=== PATIENT | male | born 1940 | race Caucasian/White ===

== ENCOUNTER 2016-11-09 11:38 | Emergency (ER) | payer MEDICARE, OTHER ==
[~2016-11-09 11:38] MED LIST: ASPI81TA40 PO; LOVA40TA PO
--- NOTE | 2016-11-09 11:45 | ED.REPORT ---
HPI-Trauma Minor / Fall Date of Service Nov 09, 2016 ED Provider: Dr. Ankush Paulson MD A 76 year old male with history of diabetes mellitus and Parkinson's disease presents to the ED via EMS after a GLF that occurred just prior to arrival. Associated symptoms include mild lower abdominal pain and a recent cough with nasal congestion. Patient denies head injury or any current pain. He denies fever, chills, dysuria or numbness/tingling. Nursing Notes Stated Complaint: FELL DOWN Nursing Notes Reviewed: Yes Allergies: Coded Allergies: No Known Allergies (Verified Allergy, Mild, 03/25/16) Scheduled Aspirin-Expunged Drug, Do Not Renew! (Aspirin-Expunged Drug, Do Not Renew!) 81 Mg Tab.chew 81 MG PO DAILY Cephalexin (Keflex) 500 Mg Capsule 500 MG PO QID Lovastatin-Expunged Drug, Do Not Renew! (Lovastatin-Expunged Drug, Do Not Renew! ) 40 Mg Tablet 40 MG PO DAILY General Time Seen by MD: 12:00 Chief Complaint Fall Hx Obtained From: Patient Arrived By: Ambulance Onset Occurred: Just prior to arrival Symptom Duration: Since onset Associated with: Reports: Abdominal pain (mild ), Denies: Fever Additional Notes: Cough Nasal congestion Pertinent Negative: Pt denies other symptoms Recent Healthcare: No recent doctor visit, No recent hospitalization Past Medical History Past Medical History Notes: PCP: Dr. Medrano Past Medical History Diabetes mellitus Urinary retention; bliss catheter Parkinson's Disease Past Surgical History Reports: Tonsillectomy Smoking History Never Smoker Social History Other Social History: Good social support, Local resident Ambulatory Status Cane Review of Systems Constitutional: Denies: Chills, Fever Ears / Nose / Throat: Reports: Nasal congestion Respiratory: Reports: Non-productive cough, Denies: Shortness of breath Musculoskeletal: Denies: Back pain, Extremity pain, Joint pain, Neck pain Neurologic: Denies: Change LOC, Headache Complete sys rev & neg: except as marked. GI: Reports: Abdominal pain (mild abdominal discomfort), Denies: Nausea, Vomiting Female: Denies: Dysuria Physical Exam Initial Vital Signs Vital Signs (First) Date Time Temp Pulse Resp B/P Pulse Ox O2 Delivery O2 Flow Rate FiO2 11/09/16 11:53 37.1 61 16 150/65 96 Room Air Initial VS: Reviewed Extremities: Vascular intact, Neuro intact, No swelling, No tenderness Skin: Warm, Dry, No cyanosis Psychiatric: Mood/affect normal, Behavior normal, Normal thought content General/Constitutional: Awake, Alert GENERAL: Patient smells of urine Neck: Atraumatic, Supple, Full range of motion Head / Eyes: Atraumatic, Normocephalic, PERRL, EOMI ENT: Atraumatic, Airway patent, Mucous membranes moist, Pharynx NL Respiratory / Chest: Atraumatic, Breath sounds NL, Breath sounds = bilat, No respiratory distress Cardiovascular: Heart rate NL, Regular rhythm, Heart sounds NL Abdomen: Atraumatic, Soft Tenderness/Guarding/Rebound: Positive: Tender suprapubic (Mild) Neurologic: Oriented X3, Speech NL, No motor deficits, No sensory deficits, CN II - XII intact NEURO: Left eyelid ptosis Interpretation & Diagnostics Lab Results Interpretation Result Diagram: 11/09/16 1214 11/09/16 1214 Test 11/09/16 12:06 11/09/16 12:14 11/09/16 13:32 Hold Chase Top Tube Received (Received) White Blood Count 8.4th/mm3 (3.8-10.1) Red Blood Count 5.06mil/mm3 (4.40-5.80) Hemoglobin 14.6g/dL (13.8-17.2) Hematocrit 44.2% (41.0-50.0) Mean Corpuscular Volume 87.4fL (81-100) Mean Corpuscular Hemoglobin 28.9pg (27.0-35.0) Mean Corpuscular Hemoglobin Concent 33.0% (32.0-37.0) Red Cell Distribution Width 13.9% (12.3-15.4) Platelet Count 273bil/L (150-400) Neutrophils (%) (Auto) 71.0% (40-74) Lymphocytes (%) (Auto) 15.4% (14-46) Monocytes (%) (Auto) 12.4% (4-12) Eosinophils (%) (Auto) 0.6% (0-5) Basophils (%) (Auto) 0.5% (0-3) Sodium Level 140mEq/L (134-144) Potassium Level 4.3mEq/L (3.5-5.2) Chloride Level 99mEq/L (97-108) Carbon Dioxide Level 26mmol/L (18-29) Blood Urea Nitrogen 23mg/dL (8-27) Creatinine 1.08mg/dL (0.76-1.27) Estimat Glomerular Filtration Rate 71mL/min (>59) Glucose Level 133mg/dL (60-99) Calcium Level 9.5mg/dL (8.5-10.1) Total Bilirubin 0.8mg/dL (0.0-1.2) Aspartate Amino Transf (AST/SGOT) 13U/L (0-50) Alanine Aminotransferase (ALT/SGPT) 5U/L (0-44) Alkaline Phosphatase 105U/L (25-160) Total Protein 7.3g/dL (6.4-8.4) Albumin 4.0g/dL (3.4-5.0) Urine Color Yellow (YELLOW) Urine Appearance Cloudy (CLEAR,HAZY) Urine pH 8.0 (5.0-8.0) Urine Specific [place] 1.010 (1.003-1.035) Urine Protein Negativemg/dL (NEG,TRACE) Urine Glucose (UA) Negativemg/dL (NEGATIVE) Urine Ketones Negativemg/dL (NEGATIVE) Urine Occult Blood Trace (NEGATIVE) Urine Nitrite Positive (NEGATIVE) Urine Bilirubin Negative (NEGATIVE) Urine Urobilinogen Normalmg/dL (NORMAL) Urine Leukocyte Esterase Moderate (NEGATIVE) Urine RBC 3-10/hpf (0-2) Urine WBC >50/hpf (0-5) Urine Epithelial Cells Few/hpf (NONE-MOD) Urine Crystals None seen (NONE SEEN) Urine Bacteria Many/hpf (NONE-FEW) Urine Hyaline Casts None/lpf (NONE) Urine Granular Casts None seen (NONE SEEN) Urine Waxy Casts None seen (NONE SEEN) Urine Red Blood Cell Casts None seen (NONE SEEN) Urine White Blood Cell Casts None seen (NONE SEEN) Urine Mucus None seen (None Seen) Urine Trichomonas None seen (NONE SEEN) Urine Yeast None (NONE SEEN) Urinalysis Comment None Urine Culture Reflexed Indicated X-Ray Chest Interpretation Chest Xray Interpretation: IMPRESSION: 1. No acute cardiopulmonary disease process. 2. Focal opacity left lung apex compatible with superimposition of shadows versus lung nodule. Recommend standard 2 view of the chest when clinically feasible. Dictated by: Imelda Seo MD, PhD on 11/09/2016 at 12:26 Interpretation / Wet Read by: Interpret - Radiologist Re-Eval/Medical Decision Med Decision/Clinical Course Mechanical fall out of bed this morning in a Parkinson's patient, he smells obviously of urine, there may be a component of mild weakness in the setting of a urinary tract infection. Patient is started on Keflex for this reason. He is ambulatory independently while in the ER and deemed safe to be discharged home. Home health referrals are made with the help of social work. Return and follow-up precautions are given. Re-Evaluation/Progress #1: Time of Eval: 13:21 Patient Status: Condition improved Re-Evaluation/Progress Note: Patient is rechecked. He is informed of his results and agrees to meet with the ASSISTANT PROFESSOR OF ECONOMICS. Re-Evaluation/Progress #2: Time of Eval: 13:55 Patient Status: Condition improved Re-Evaluation/Progress Note: Patient is rechecked. All of the patient's questions are adressed. He understands and agrees with the treatment plan to discharge. Counseled Regarding: Diagnosis, Lab results, Need for follow-up, When/why to return to ED Discharge & Departure Impression: Primary Impression: Urinary tract infection Urinary tract infection type: site unspecified Hematuria presence: without hematuria Qualified Code: N39.0 - Urinary tract infection, site not specified Additional Impression: Lung nodule Disposition: Home Discharge Condition All VS Reviewed: Yes Condition: Stable Patient Instructions: Urinary Tract Infection in Men (ED) Additional Instructions: Thank you for trusting us with your care this morning. Your emergency department evaluation results including lab results and chest X- ray are reassuring. Your chest X-ray did reveal a possible lung nodule and your lab work revealed a urinary tract infection. Please take Keflex as directed and see the referral for home health given by the web content & social media manager. Schedule a follow up with your primary care physician in the next 2-3 days for a recheck. Please return to the emergency department for any new or worsening conditions including any difficulty breathing, numbness/tingling, fevers, or chest pain. Referrals: Luis Medrano MD (PCP) Scribe Attestation Portions of this note were transcribed by Ghada Rasihd. I, Dr. Robbi Fonseca personally performed the history, physical exam and medical decision-making; I reviewed and confirmed the accuracy of the information in the transcribed note. Signed by: Tera Pinedo, 11/09/16 1430. copies to: Luis Medrano MD, Timothy S DO Nov 09, 2016 11:45 GHADA RASHID Nov 09, 2016 12:07
[2016-11-09 11:53] VITALS: BP 150/65; PULSE 61; RESP 16; O2SAT 96
[2016-11-09] MEDS ORDERED: 0.9% Sodium Chloride 500 ML IV ONE (12:10)
[2016-11-09 12:24] LABS: BASOPHILS % (AUTO) 0.5 % (0-3); EOSINOPHILS % (AUTO) 0.6 % (0-5); MONOCYTES % (AUTO) 12.4 % (4-12); Mean Corpuscular Hemoglobin 28.9 pg (27.0-35.0); Mean Corpuscular Volume 87.4 fL (81-100); Platelet Count 273 bil/L (150-400)
--- NOTE | 2016-11-09 12:28 | DRSVH ---
PROCEDURE: X-RAY CHEST ONE VIEW, PORTABLE ([id number]) INDICATIONS: weakness, congestion TECHNIQUE: One view of the chest was acquired. COMPARISON: None. FINDINGS: Surgical changes and devices: None. Lungs and pleura: No pleural effusions or pneumothorax. Focal masslike opacity noted in the apex of the left lung which could represent superimposition of skeletal shadows versus a parenchymal mass. Mediastinum: Mediastinal contours appear normal. Heart size is normal. Bones and chest wall: No suspicious bony lesions. Overlying soft tissues appear unremarkable. IMPRESSION: 1. No acute cardiopulmonary disease process. 2. Focal opacity left lung apex compatible with superimposition of shadows versus lung nodule. Adam mmend standard 2 view of the chest when clinically feasible. Dictated by: Imelda Seo MD, PhD on 11/09/2016 at 12:26 Approved by: Imelda Seo MD, PhD on 11/09/2016 at 12:27
[2016-11-09 14:01] LABS: APPEARANCE,URINE CLOUDY (CLEAR,HAZY); COLOR,URINE YELLOW (YELLOW); OCCULT BLOOD,URINE TRACE (NEGATIVE); UROBILINOGEN,URINE NORMAL (NORMAL)
[2016-11-09] MEDS ORDERED: CEPH-512 PO (14:07)
[2016-11-09 14:42] VITALS: BP 145/65; PULSE 64; RESP 16; O2SAT 97
== END 2016-11-09 14:43 | disposition home or self-care (01) ==
LOC: SED 11:38 → EDBD 11:38 → SED 14:43
DX: N39.0 Urinary tract infection, site not specified (principal); R91.1 Solitary pulmonary nodule; W06.XXXA Fall from bed, initial encounter; Y92.013 Bedroom of single-family (private) house as the place of occurrence of the external cause; Y93.89 Activity, other specified; Y99.8 Other external cause status; B96.1 Klebsiella pneumoniae [K. pneumoniae] as the cause of diseases classified elsewhere; R09.81 Nasal congestion; E11.9 Type 2 diabetes mellitus without complications; G20 Parkinson's disease; Z87.891 Personal history of nicotine dependence; Z91.81 History of falling; Z79.82 Long term (current) use of aspirin
CPT/HCPCS: 36415; 71010; 80053; 81000; 85025; 87077; 87086; 87088; 87186; 96360; 99285; J7040

== ENCOUNTER 2016-12-02 00:54 | Inpatient (IN) | payer MEDICARE, OTHER ==
[2016-12-02] VITALS (9 sets, daily range): BP systolic 98–143; BP diastolic 46–67; PULSE 68–121; RESP 18–28; O2SAT 91–96
[~2016-12-02] VITALS: Ht 185.4 cm; Wt 116.3 kg
[~2016-12-02 00:54] MED LIST changes: +CEPH-512 PO
--- NOTE | 2016-12-02 01:15 | ED.REPORT ---
HPI-Dyspnea / Wheezing Date of Service Dec 02, 2016 ED Provider: Noa Jorgensen MD This is a 76 year old male with a history of DM and Parkinson's Disease presenting to the emergency department via EMS due to chills that began 16 hours ago. Family member states pt also had an episode of dyspnea just prior to arrival. Denies chest pain, nausea, vomiting, fever, or abdominal pain. Patient was normal yesterday. En route, blood pressure 162/75, HR 100. Nursing Notes Stated Complaint: FEVER Chief Complaint: Respiratory Complaints Nursing Notes Reviewed: Yes Allergies: Coded Allergies: No Known Allergies (Verified Allergy, Mild, 03/25/16) Scheduled Aspirin-Expunged Drug, Do Not Renew! (Aspirin-Expunged Drug, Do Not Renew!) 81 Mg Tab.chew 81 MG PO DAILY Cephalexin (Keflex) 500 Mg Capsule 500 MG PO QID Lovastatin-Expunged Drug, Do Not Renew! (Lovastatin-Expunged Drug, Do Not Renew! ) 40 Mg Tablet 40 MG PO DAILY General Time Seen by MD: 01:04 Chief Complaint Shortness of breath Hx Obtained From: Patient Arrived By: Walk-in Sudden in Onset?: Yes Onset Occurred: 9 - 12 hours ago Symptom Duration: Since onset Severity: Current: No pain currently Pertinent Negative: Pt denies other symptoms Recent Healthcare: No recent doctor visit, No recent hospitalization Similar Sx Previous: No Past Medical History Past Medical History Notes: PCP: Dr. Medrano Past Medical History Diabetes mellitus Urinary retention; bliss catheter Parkinson's Disease Past Surgical History Reports: Tonsillectomy Smoking History Never Smoker Social History Other Social History: Good social support, Local resident Ambulatory Status Cane Review of Systems Constitutional: Reports: Chills, Fever Respiratory: Denies: Non-productive cough, Shortness of breath Musculoskeletal: Denies: Back pain Complete sys rev & neg: except as marked. Physical Exam Initial Vital Signs Vital Signs (First) Date Time Temp Pulse Resp B/P Pulse Ox O2 Delivery O2 Flow Rate FiO2 12/02/16 01:03 37.9 121 28 143/51 91 Room Air Initial VS: Reviewed Head / Eyes: Atraumatic, Normocephalic, PERRL ENT: Mucous membranes moist, Conjunctiva normal, No scleral icterus Abdomen / GI: Soft, Non-tender, No guarding, No rebound, No distention Extremities: Vascular intact, Neuro intact, No swelling, No tenderness Skin: Warm, Dry, No cyanosis Neurologic: Alert, Oriented, Nonfocal Psychiatric: Mood/affect normal, Behavior normal, Normal thought content General/Constitutional: Awake, Alert Slow to respond, requires re-direction Neck: Atraumatic, Supple, No meningismus, Full range of motion, No swelling, Non-tender, No masses Respiratory / Chest: No respiratory distress, No wheezing Diffuse rhonchi Cardiovascular: Regular rhythm, Heart sounds NL, Peripheral circulation NL Heart Rate / Rhythm: Positive: Tachycardia Interpretation & Diagnostics Lab Results Interpretation Result Diagram: 12/02/169912/02/1699 Test 12/02/16 01:00 12/02/16 01:20 12/02/16 01:45 White Blood Count 4.2th/mm3 (3.8-10.1) Red Blood Count 5.20mil/mm3 (4.40-5.80) Hemoglobin 15.0g/dL (13.8-17.2) Hematocrit 46.2% (41.0-50.0) Mean Corpuscular Volume 88.8fL (81-100) Mean Corpuscular Hemoglobin 28.8pg (27.0-35.0) Mean Corpuscular Hemoglobin Concent 32.5% (32.0-37.0) Red Cell Distribution Width 13.9% (12.3-15.4) Platelet Count 151bil/L (150-400) Neutrophils (%) (Auto) 78.0% (40-74) Lymphocytes (%) (Auto) 17.8% (14-46) Monocytes (%) (Auto) 2.1% (4-12) Eosinophils (%) (Auto) 1.7% (0-5) Basophils (%) (Auto) 0.2% (0-3) Prothrombin Time 11.6sec (8.1-12.5) Prothromb Time International Ratio 1.08ratio Activated Partial Thromboplast Time 22.2sec (22.8-33.0) Sodium Level 144mEq/L (134-144) Potassium Level 4.3mEq/L (3.5-5.2) Chloride Level 101mEq/L (97-108) Carbon Dioxide Level 22mmol/L (18-29) Blood Urea Nitrogen 30mg/dL (8-27) Creatinine 1.20mg/dL (0.76-1.27) Estimat Glomerular Filtration Rate 63mL/min (>59) Glucose Level 123mg/dL (60-99) Calcium Level 9.6mg/dL (8.5-10.1) Magnesium Level 1.4mg/dL (1.6-2.6) Total Bilirubin 0.5mg/dL (0.0-1.2) Aspartate Amino Transf (AST/SGOT) 14U/L (0-50) Alanine Aminotransferase (ALT/SGPT) < 5U/L (0-44) Alkaline Phosphatase 134U/L (25-160) Troponin T < 0.010ug/L (0.0-0.011) Pro-B-Type Natriuretic Peptide 195.9pg/mL (0-486) Total Protein 7.2g/dL (6.4-8.4) Albumin 4.1g/dL (3.4-5.0) Procalcitonin 0.05ng/mL (0.00-0.08) Lactic Acid Level 3.4mmol/L (0.4-2.0) Urine Color Straw (YELLOW) Urine Appearance Slightly cloudy Urine pH 5.0 (5.0-8.0) Urine Specific [place] 1.020 (1.003-1.035) Urine Protein Tracemg/dL (NEG,TRACE) Urine Glucose (UA) Negativemg/dL (NEGATIVE) Urine Ketones Negativemg/dL (NEGATIVE) Urine Occult Blood Moderate (NEGATIVE) Urine Nitrite Negative (NEGATIVE) Urine Bilirubin Negative (NEGATIVE) Urine Urobilinogen Normalmg/dL (NORMAL) Urine Leukocyte Esterase Moderate (NEGATIVE) Urine RBC 3-10/hpf (0-2) Urine WBC Packed/hpf (0-5) Urine Epithelial Cells Occasional/hpf (NONE-MOD) Urine Crystals None seen (NONE SEEN) Urine Bacteria Many/hpf (NONE-FEW) Urine Hyaline Casts None/lpf (NONE) Urine Granular Casts None seen (NONE SEEN) Urine Waxy Casts None seen (NONE SEEN) Urine Red Blood Cell Casts None seen (NONE SEEN) Urine White Blood Cell Casts None seen (NONE SEEN) Urine Mucus None seen (None Seen) Urine Trichomonas None seen (NONE SEEN) Urine Yeast None (NONE SEEN) Urine Culture Reflexed Indicated ECG Interpretation ECG Interpretation: Junctional tachycardia at a rate of [address] elevation T-wave inversion in AVR, AVL, V1 Time: 01:21 Interpreted by: ED physician X-Ray Chest Interpretation Chest Xray Interpretation: Cardiomegaly Slightly widened mediastinum that is unchanged from prior Increased patchy infiltrates diffusely, when compared to prior Interpretation / Wet Read by: Wet read ED physician CT Chest Interpretation Impression: Suboptimal study for distal lobar, segmental and subsegmental PE due to motion artifact. No pulmonary emboli in the main and proximal lobar pulmonary arteries. Radiologist: Jam Valdez MD Re-Eval/Medical Decision Med Decision/Clinical Course 76-year-old male with past medical history of Parkinson's, hypertension, BPH requiring self-catheterization brought in by EMS for shortness of breath and altered mental status. Differential diagnosis includes but is not limited to pneumonia versus PE versus ACS versus urinary tract infection. Patient is tachycardic with junctional rhythm on EKG. There is no ST elevation. His PE study was suboptimal, but does not show any large PE. He was given fluids. His lactic acid was elevated. He has no leukocytosis or left shift. However, he does have a urinary tract infection, and I see small infiltrates on his chest x-ray. He was given Rocephin and a Zithromax, along with fluid resuscitation in the emergency department. He was admitted by the hospitalist for altered mental status which was improving and urinary tract infection Re-Evaluation/Progress : Time of Eval: 03:03 Re-Evaluation/Progress Note: Discussed lab and imaging results and need for admission, all questions addressed. Consultation : Referral / Consult Name: Britney Madden DO Consulted With: Hospitalist Call Returned at: 03:22 Supervisor Ticket Sales: Accepts admit Counseled Regarding: Diagnosis, Lab results, Need for follow-up, Need for admission Discharge & Departure Impression: Primary Impression: Pneumonia Pneumonia type: due to unspecified organism Laterality: unspecified laterality Lung location: unspecified part of lung Qualified Code: J18.9 - Pneumonia, unspecified organism Additional Impression: UTI (urinary tract infection) Urinary tract infection type: site unspecified Hematuria presence: without hematuria Qualified Code: N39.0 - Urinary tract infection, site not specified Disposition: ADMITTED TO HOSPITAL Discharge Condition All VS Reviewed: Yes Condition: Stable Referrals: Luis Medrano MD (PCP) Scribe Attestation Portions of this note were transcribed by Emily Pink. I, Dr. Jorgensen personally performed the history, physical exam and medical decision-making; I reviewed and confirmed the accuracy of the information in the transcribed note. Signed by: Emily Pink, reuben. 12/01/2016, 03:00. Noa Jorgensen MD Dec 02, 2016 01:15 EMILY PINK Dec 02, 2016 01:22
[2016-12-02 01:20] LABS: BASOPHILS % (AUTO) 0.2 % (0-3); EOSINOPHILS % (AUTO) 1.7 % (0-5); MONOCYTES % (AUTO) 2.1 % (4-12); Mean Corpuscular Hemoglobin 28.8 pg (27.0-35.0); Mean Corpuscular Volume 88.8 fL (81-100); Platelet Count 151 bil/L (150-400)
[2016-12-02] MEDS ORDERED: 0.9% Sodium Chloride 500 ML IV ONE ×2 (01:25→03:00)
[2016-12-02 01:42] LABS: INR 1.08 ratio
[2016-12-02 01:48] LABS: TROPONIN T < 0.010 ug/L (0.0-0.011)
[2016-12-02 02:07] LABS: Magnesium 1.4 mg/dL (1.6-2.6)
[2016-12-02] MEDS ORDERED: cefTRIAXone Inj 1,000 MG in Dextrose 5% Minibag Plus 50 ML IV ONE (02:20)
[2016-12-02 02:57] LABS: APPEARANCE,URINE SLIGHTLY CLOUDY (CLEAR,HAZY); COLOR,URINE STRAW (YELLOW); OCCULT BLOOD,URINE MODERATE (NEGATIVE); UROBILINOGEN,URINE NORMAL (NORMAL)
--- NOTE | 2016-12-02 04:03 | PCM.HPMED ---
Subjective Date of Service Dec 02, 2016 Primary Provider: Admitting Physician: Primary Care Physician: Luis Medrano MD Attending Physician: Admit Status: From the Emergency Department Chief Complaint: Acute onset chills and dyspnea, acute onset brief episode of difficulty clearing own secretions, encephalopathy(AMS) History of Present Illness: This is a pleasant 76 Y/O M with a history of DM on metformin 500 mg twice a day , and Parkinson's Disease takes both carbidopa and donepezil, history of BPH requiring self-catheterization and takes tamsulosin, who presented to the ED acute onset difficulty breathing, chills, and difficulty clearing once throat of secretions onset 2200 hrs. on 12/01/2016. Patient lives at home with his sister Natalia who is patient's primary historian. She states that prior to 2200 hrs. patient was perfectly fine with no respiratory distress. Patient and his sister report chills, dyspnea, shortness of breath, tachypnea, respiratory distress and dysuria. Of note patient's rocket engine tester reported small droplet of blood from the patient's urethra earlier today. Denies chest pain, nausea, vomiting, fever, or abdominal pain, or coughing other then the brief episode of throat clearing previously described. Patient was normal yesterday. Patient denies any shortness of breath or difficulty breathing currently. Patient ambulates on his almost a cane at home. In the ED patient was found to be tachypneic with a heart rate of 121, and hypertensive with a blood pressure 167/75. UA showed: Trace protein, moderate occult blood, moderate leukocyte esterase, 3- 10 RBCs prior prior field, packed WBCs, urine bacteria many, Patient has Bliss catheter in that straining cloudy yellow urine. ECG showed: Junctional tachycardia at a rate 123, no ST elevation, T-wave inversions in aVR and aVL and V1. CXR: Cardiomegaly, was slightly widened mediastinum is unchanged from prior, increased, patchy infiltrates diffusely when compared to prior exam as read by ED physician. CT chest angiogram showed: Suboptimal study for distal lobar, segmental and subsegmental PE due to motion artifact. No pulmonary emboli in the main and proximal lobar pulmonary arteries. Patient received 1000mL of IV normal saline in the ED. Patient received single dose of 1000 mg ceftriaxone in the ED. Patient received single dose of azithromycin 500 mg by mouth in the ED. Vital signs: Temperature 37.9, pulse 121, respiratory rate 28, blood pressure 143/51 with a map of 81, 81% on room air. Hemogram showed,: WBCs 4.2, 78% PMNs, H/H 15.0/46.2, platelets 151 Chemistry panel showed: BUN 30, glucose 123, lactic acid 3.4, magnesium 1.4, troponin 0.010, otherwise normal chemistry panel. PT INR: 11.6/1.08 PTT 22.2 Review of Systems: A comprehensive review of systems was conducted and was negative except as mentioned in history of present illness. Allergies Coded Allergies: No Known Allergies (Verified Allergy, Mild, 03/25/16) Home Medications Aspirin 81 Mg Tab.chew 81 MG PO DAILY Cephalexin (Keflex) 500 Mg Capsule 500 MG PO QID Atorvastatin 20 mg tablet daily Lovastatin 40 mg by mouth daily Carbidopa 25 mg 3 times a day Donepezil 10 mg by mouth daily at bedtime Finasteride 5 mg by mouth daily Tamsulosin 0.4 mg by mouth daily Metformin 500 mg by mouth twice a day Omeprazole 20 mg daily PMH PCP: Dr. Medrano Diabetes mellitus Urinary retention; bliss catheter Parkinson's Disease Surgical History Tonsillectomy Family History Father with lung cancer, tobacco history, history of EtOH Mother history of stroke Brother prostate cancer All family members with history of mild hypertension Social History Hx Alcohol Use: No Hx Substance Use: No Smoking Status: Never Smoker Exam Vital Signs Vital Sign - Last Date Time Temp Pulse Resp B/P Pulse Ox O2 Delivery O2 Flow Rate FiO2 12/02/16 01:03 37.9 121 28 143/51 91 Room Air Intake and Output 12/01/16 12/01/16 12/02/16 Cumulative From/Thru 15:00 23:00 07:00 12/02/16 01:03 - 12/02/16 01:51 Intake Total 500 ml 500 ml Balance 500 ml 500 ml Intake IV Total 500 ml 500 ml Exam General: HEENT: NC/AT, eyes, PERRLA, EOMI, neck, soft supple, no adenopathy, no JVD, no masses, no thyromegaly, throat mucous membranes pink and moist/Dry, no erythema , no exudates, no tonsillar swelling, no uvular deviation. Lungs: CTAB all galvez, no wheezes, no rhonchi, no crackles, no adventitious lung sounds, no use of accessory muscles of respiration, good air movement, good respiratory effort. Heart: Regular rate and rhythm, no murmur, S1-S2 present, no rub, no click, no distant heart sounds, Abdomen: Soft, nontender, nondistended, bowel sounds active, no rebound, no guarding, Genitourinary: No CVA tenderness, no suprapubic tenderness, no Bliss catheter, Extremities: Muscle strength, 5 out of 5 upper/lower extremity and symmetric laterally, reflexes 2 out of 4 upper/lower extremity and symmetric bilaterally, pulses equal and symmetric upper/lower extremity including radial and dorsalis pedis, no edema Neurologic: See neurologically intact, PT in full sentences, no focal neurological signs, [id number]-[id number], [id number], no pronator drift, no hemineglect. Skin: Psychiatric: Mood is cheerful and mood and affect are congruent and appropriate. Lab and Diagnostics Result Diagram: 12/02/169912/02/1699 Assessment & Plan This is a pleasant 76-year-old male with past history of type II diabetes on metformin, Parkinson's disease on carbidopa and omeprazole, and history of BPH with self-catheterization he presented to the ED complaining of acute onset respiratory distress, and dysuria with evidence of urinary tract infection, and possible pneumonia. Patient was admitted for UTI and pneumonia. # Acute severe sepsis, present on admission, active - She meets QSOFA criteria with greater than or equal to 2/3 criteria respiratory rate greater than 22 (RR 28), and [place] Coma Scale less than 14 ( patient's [place] Coma Scale is 13) - Current lactic acid is 3.4 - We will trend lactic acid - IV fluids and antibiotics as above - Continue to monitor blood pressure # Acute respiratory distress with hypoxia, present on admission, active - Patient currently in no acute respiratory distress. Denies shortness of breath or dyspnea - Saturation 91% on room air - Differential diagnosis includes pneumonia versus PE, versus aspiration - CXR: Cardiomegaly, was slightly widened mediastinum is unchanged from prior, increased, patchy infiltrates diffusely when compared to prior exam as read by ED physician. - CT chest angiogram showed: Suboptimal study for distal lobar, segmental and subsegmental PE due to motion artifact. No pulmonary emboli in the main and proximal lobar pulmonary arteries. - We will give supplemental oxygen if necessary - Antibiotics as stated above # Community-acquired pneumonia, present on admission, active -Vital signs: Temperature 37.9, pulse 121, respiratory rate 28, blood pressure 143/51 with a map of 81, 81% on room air. -ECG showed: Junctional tachycardia at a rate 123, no ST elevation, T-wave inversions in aVR and aVL and V1. -CXR: Cardiomegaly, was slightly widened mediastinum is unchanged from prior, increased, patchy infiltrates diffusely when compared to prior exam as read by ED physician. -CT chest angiogram showed: Suboptimal study for distal lobar, segmental and subsegmental PE due to motion artifact. No pulmonary emboli in the main and proximal lobar pulmonary arteries. -CBC with Diff, CMP -Sputum culture ordered and pending -Blood Cx X2 -Procalcitonin 0.05 -CAP Empiric ABx Ceftriaxone 1000 milligrams every 24 + Azithromycin 500 mg by mouth 24 -Acetominophen for Fever control -IV Saline fluids at maintenance 100 milliliters per hour -Legionella urine antigen, and Strep pneumonia urine antigen -Viral PCR (biofire) -Influenzae A/B -IV fluids will saline at 100 mL per hour # Urinary tract infection, present on admission, active - UA showed: Trace protein, moderate occult blood, moderate leukocyte esterase, 3-10 RBCs prior prior field, packed WBCs, urine bacteria many, - Urine culture ordered and pending - Continue Antibiotics as stated above # Hypomagnesemia, present on admission, active -Magnesium 1.4 -We will replete magnesium # Lactic acidosis, present on admission, active - Patient's lactic acid was 3.4 in the ED - We will trend lactic acid - IV fluids as above # Tachycardia, present on admission, active - He denies chest pain - Pulse was 121 in ED, was recent pulse was 103 - EKG showed junctional tachycardia rate of 123, no ST elevations, T-wave inversions in aVR, aVL, V1 - Troponin 0.010 - Continuous cardiac monitoring # Tachypnea, present on admission, but active - Respiratory rate of 28 in the ED - O2 sats 91 on room air in the emergency department, patient denies use of home oxygen - Continue to monitor his respiratory status # Hyperglycemia, present on admission, active -Glucose 123 Diabetes mellitus - SSI low correctional, hold metformin Urinary retention; self cath prn bliss catheter Parkinson's Disease - continue carbidopa Disposition: Admitted to in patient service with expected length of stay greater than 2 days, secondary to severity of presenting symptoms, treatment plan, complexity of clinical work up, and risk of adverse events. CODE STATUS: Full code PCP: Dr. Luis Medrano DVT PE prophylaxis: SCD's/Enoxiparin/SubQ heparin Q8H Contact: Sister Natalia VTE Prophylaxis: Sub-Q Heparin (Unfractionated) Resuscitation Status: CPR: Attempt Resuscitation Attending Statement The patient was seen and examined together with house staff on 12/02/16 and I agree with the history, exam and plan as outlined in the note above. Brain Pardo DO Dec 02, 2016 04:03 Britney Madden DO Dec 02, 2016 06:18 inversions in aVR and aVL and V1. CXR: Cardiomegaly, was slightly widened mediastinum is unchanged from prior, increased, patchy infiltrates diffusely when compared to prior exam as read by ED physician. CT chest angiogram showed: Suboptimal study for distal lobar, segmental and subsegmental PE due to motion artifact. No pulmonary emboli in the main and proximal lobar pulmonary arteries. VTE Prophylaxis: Sub-Q Heparin (Unfractionated) Resuscitation Status: CPR: Attempt Resuscitation Brain Pardo DO Dec 02, 2016 04:03
[2016-12-02] MEDS ORDERED: Polyethylene Glycol (PEG) 17 Gm Powder PO PRN (04:25)
[2016-12-02] MEDS ORDERED: Alum-Mag Hydrox-Simeth 30 mL Suspension PO PRN (04:25)
[2016-12-02] MEDS ORDERED: METF500T4 PO (04:43)
[2016-12-02] MEDS ORDERED: ATOR20TA PO (04:43)
[2016-12-02] MEDS ORDERED: DONE10TA42 PO (04:43)
[2016-12-02] MEDS ORDERED: FINA5TAB9 PO (04:43)
[2016-12-02] MEDS ORDERED: CARB25TA3 PO (04:43)
[2016-12-02] MEDS ORDERED: OMEP20CA11 PO (04:43)
[2016-12-02] MEDS ORDERED: TAMS0.4C98 PO (04:43)
--- NOTE | 2016-12-02 04:54 | NUR ---
admit note: pt. admitted for fever, chills, shaking, change in resp effort. Pt. had positive UA, bliss placed for retention, pt. is diabetic and has hx parkinsons, lactic acid was elevated 3.4 temp 37.7, sister at bedside.
[2016-12-02] MEDS ORDERED: Magnesium Sulf 2 Gm/50mL Water 2 GM in IV Premix 1 EACH IV ONE (05:15)
[2016-12-02] MEDS ORDERED: Glucose 40% Oral Gel 15 Gm Tube PO PRN (06:10)
--- NOTE | 2016-12-02 08:15 | DRSVH ---
PROCEDURE: CT ANGIO CHEST PULMONARY EMBOLISM ([id number]) INDICATIONS: tachycardia, hypoxia TECHNIQUE: After the administration of intravenous contrast, 2 mm thick sections acquired from the pulmonary api alexa to the posterior costophrenic angles. 3-dimensional maximum intensity projection (MIP) coronal a nd sagittal reformats were then acquired through the thorax. For radiation dose reduction, the follo wing was used: automated exposure control, adjustment of mA and/or kV according to patient size. COMPARISON: [facility], CR, XR CHEST 1VW (PORTABLE), 12/02/2016, 1:06. FINDINGS: Image quality: Respiratory motion artifacts are present. Pulmonary arteries: Pulmonary arteries are normal in size, and demonstrate no intraluminal filling d efects to suggest central pulmonary embolism. Lungs and pleura: Lungs are clear. No pleural effusions or pneumothorax. Central and peripheral ai rways are patent. Mediastinum: Heart size is normal, without pericardial effusion. Moderate coronary calcification. N o mediastinal or hilar adenopathy. Thoracic aorta is normal in caliber and enhancement. Esophagus i s normal in caliber. There is a small hiatal hernia. Bones and chest wall: No suspicious bony lesions. Ribs and thoracic spine appear intact throughout. Thyroid gland is normal. No axillary or supraclavicular adenopathy. Abdomen: Visualized upper abdominal solid organs appear normal in the early arterial phase of enhanc ement. IMPRESSION: 1. Suboptimal examination due to respiratory motion artifacts. No definitive central pulmonary emboli . 2. Moderate coronary artery calcification consistent with atherosclerosis. 3. Small hiatal hernia. No significant discrepancy with the [facility] shift lead radiology preliminary report. Dictated by: Jovani Vaughan M.D. on 12/02/2016 at 8:10 Approved by: Jovani Vaughan M.D. on 12/02/2016 at 8:14
[2016-12-02] MEDS: Insulin LISPRO 300 Unit/3 mL Inj SUBQ SCH ×4 (08:43→22:00)
[2016-12-02] MEDS: Pantoprazole 20 mg ER24 Tablet PO SCH (08:45)
[2016-12-02] MEDS: Heparin 5,000 Unit/mL Inj SUBQ SCH ×2 (08:53→18:03)
--- NOTE | 2016-12-02 09:06 | DRSVH ---
PROCEDURE: X-RAY CHEST ONE VIEW, PORTABLE ([id number]) INDICATIONS: SOB TECHNIQUE: One view of the chest was acquired. COMPARISON: [facility], CR, XR CHEST 1VW (PORTABLE), 11/09/2016, 12:04. FINDINGS: Surgical changes and devices: None. Lungs and pleura: No pleural effusions or pneumothorax. Lungs are clear. Mediastinum: Mediastinal contours appear normal. Heart size is normal. Bones and chest wall: No suspicious bony lesions. Overlying soft tissues appear unremarkable. IMPRESSION: Expiratory chest demonstrating no definite acute cardiopulmonary process. Dictated by: Rene Marshall [facility] Interpreted: Imelda Seo MD on 12/02/2016 at 9:05 Transcribed by: RAO on 12/02/2016 at 9:06 Approved by: Imelda Seo MD, PhD on 12/02/2016 at 17:17
--- NOTE | 2016-12-02 10:55 | NUR ---
Social Work: Initial Assessment Data & Assessment: See Initial Assessment. EMR review. Patient is a 76 y/o female that admitted on 12/02/16 for pneumonia and UTI per H& P. Customer Success Intern met with patient to complete initial assessment, SW role reviewed and discharge planning discussed. The patient kept going in and out of sleep during the assessment. SW called patient's caregiver, Gi [phone], and patient's sister Natalia Johnson [phone], to confirm the information below. Patient reported that his PCP is Dr. Luis Medrano. Patient's insurance is Medicare. Patient does not have LTC or VA benefits. Patient does not have a DPOA and declined information. Patient does not have a readmit score. Patient lives at home with his and sister in a single level home with two steps to enter. Patient has a caregiver that comes into the home three times a week to assist with bathing and other house hold chores. Patient reported that he does drive, but patient's stated that she encourages him not to drive. Patient's is currently in the hospital at [facility]. Patient has never been to a SNF and has never had HH. Patient does not have any DME. Patient's discharge needs have not yet been determined. SW will continue to follow and assist. Plan: Patient is likely to discharge home with a caregiver three days a week. SW will continue to follow patient to rule out the need for HH. Patient will discharge via POV. SW will continue to follow and assist patient throughout stay. Bisi Kim LMSW, GERA Addendum: 12/02/16 at 1123 by BISI CORTES Amended: Links added.
--- NOTE | 2016-12-02 14:54 | NUR ---
Evaluation completed. Please go to "Notes" then click on "Assessments and Notes" (bottom left corner of screen). Then select appropriate discipline tab on top of screen.
--- NOTE | 2016-12-02 15:44 | PCM.PNMED ---
Subjective Date of Service Dec 02, 2016 Subjective Feeling well currently, he is on room air. Still having some low-grade temperatures. Staff reports that he felt his bedside swallow. No chest pain, diarrhea or constipation Exam Vital Signs Vital Sign - Last Date Time Temp Pulse Resp B/P Pulse Ox O2 Delivery O2 Flow Rate FiO2 12/02/16 12:29 37.3 75 22 108/51 93 Room Air Intake and Output 12/01/16 12/01/16 12/02/16 Cumulative From/Thru 15:00 23:00 07:00 12/02/16 01:03 - 12/02/16 06:35 Intake Total 740 ml 740 ml Output Total 525 ml 525 ml Balance 215 ml 215 ml Intake Oral 240 ml 240 ml IV Total 500 ml 500 ml Output Urine Total 525 ml 525 ml Exam General: Alert, Oriented X3, NAD Head: Normocephalic, atraumatic Eyes: LOBITO, EOMI, no scleral Icterus Chest: clear to auscultation B/L, no wheezing rales or rhonchi Heart: Regular rate and rhythm. Normal S1, S2, no murmurs noted Abdomen: soft, non-tender. Bowel sounds are normoactive. No guarding or rebound. Extremities: no cyanosis, clubbing or edema. IVs and Medications Medications Reviewed: Medications were reviewed in detail Lab and Diagnostics Result Diagram: 12/02/169912/02/1699 Assessment & Plan This is a pleasant 76-year-old male with past history of type II diabetes on metformin, Parkinson's disease on carbidopa and omeprazole, and history of BPH with self-catheterization he presented to the ED complaining of acute onset respiratory distress, and dysuria with evidence of urinary tract infection, and possible pneumonia. Patient was admitted for UTI and pneumonia. # Acute severe sepsis, present on admission, -Improving with current regimen. - trend lactic acid - IV fluids and antibiotics as above - Continue to monitor blood pressure # Acute respiratory distress with hypoxia, present on admission, active - Patient currently in no acute respiratory distress. Denies shortness of breath or dyspnea - CXR: Cardiomegaly, was slightly widened mediastinum is unchanged from prior, increased, patchy infiltrates diffusely when compared to prior exam as read by ED physician. - CT chest angiogram showed: Suboptimal study for distal lobar, segmental and subsegmental PE due to motion artifact. No pulmonary emboli in the main and proximal lobar pulmonary arteries. - We will give supplemental oxygen if necessary # Community-acquired pneumonia, present on admission, active -Sputum culture ordered and pending -CAP Empiric ABx Ceftriaxone 1000 milligrams every 24 + Azithromycin 500 mg by mouth 24 -Legionella urine antigen, and Strep pneumonia urine antigen -Viral PCR (biofire) # Urinary tract infection, present on admission, active - UA showed: Trace protein, moderate occult blood, moderate leukocyte esterase, 3-10 RBCs prior prior field, packed WBCs, urine bacteria many, - Urine culture ordered and pending - Continue Antibiotics as stated above # Hypomagnesemia, present on admission, active -Magnesium 1.4 on admission, recheck tomorrow. He was given IV replacement Diabetes mellitus - SSI low correctional, hold metformin Urinary retention; self cath prn bliss catheter Parkinson's Disease - continue carbidopa CODE STATUS: Full code PCP: Dr. Luis Medrano DVT PE prophylaxis: SCD's/Enoxiparin/SubQ heparin Q8H VTE Prophylaxis: Sub-Q Heparin (Unfractionated) Resuscitation Status: CPR: Attempt Resuscitation Alan Gong DO Dec 02, 2016 15:44
[2016-12-02] MEDS ORDERED: ASPI-973 PO (20:15)
[2016-12-02] MEDS ORDERED: CARB1TAB14 PO (20:15)
[2016-12-03] VITALS (10 sets, daily range): BP systolic 100–155; BP diastolic 49–80; PULSE 60–66; RESP 18–22; O2SAT 92–96
[2016-12-03] MEDS: Heparin 5,000 Unit/mL Inj SUBQ SCH ×3 (00:56→16:52)
[2016-12-03 03:16] LABS: BASOPHILS % (AUTO) 0.2 % (0-3); EOSINOPHILS % (AUTO) 0.5 % (0-5); MONOCYTES % (AUTO) 8.4 % (4-12); Mean Corpuscular Hemoglobin 28.6 pg (27.0-35.0); Mean Corpuscular Volume 88.9 fL (81-100); NEUTROPHILS % (AUTO) 83.3 % (40-74); Platelet Count 135 bil/L (150-400)
[2016-12-03] MEDS: 0.9% Sodium Chloride 1,000 ML IV SCH (05:31)
[2016-12-03] MEDS: cefTRIAXone Inj 1,000 MG in Dextrose 5% Minibag Plus 50 ML IV SCH (05:31)
[2016-12-03] MEDS: Insulin LISPRO 300 Unit/3 mL Inj SUBQ SCH ×4 (07:28→20:39)
--- NOTE | 2016-12-03 07:29 | NUR ---
Mentation/Activity Pt A&Ox3, able to state year and exact hospital he is at, as well as stating he is here d/t pneumonia. Pt is very passive but compliant w/ care, follows commands and responds to questions. Pt PEÑA equally but is very weak and requires a lot of help with turning. Q2 turning done for skin protection.
--- NOTE | 2016-12-03 08:14 | PCM.PNMED ---
Subjective Date of Service Dec 03, 2016 Subjective Very somnolent. Denies any chest or abdomen pain. No nausea. No dyspnea. No cough. Overnight events reviewed. Exam Vital Signs Vital Sign - Last Date Time Temp Pulse Resp B/P Pulse Ox O2 Delivery O2 Flow Rate FiO2 12/03/16 07:28 36.3 62 20 100/51 92 Room Air Intake and Output 12/02/16 12/02/16 12/03/16 Cumulative From/Thru 15:00 23:00 07:00 12/02/16 01:03 - 12/03/16 06:27 Intake Total 1255 ml 196 ml 2191 ml Output Total 1050 ml 1575 ml Balance 205 ml 196 ml 616 ml Intake Oral 1102 ml 1342 ml IV Total 153 ml 196 ml 849 ml Output Urine Total 1050 ml 1575 ml Exam Alert, somnolent. Fluent speech. Appropriate. Anicteric sclera Lungs clear, normal effort Heart regular, No murmur Abdomen soft, NT No edema No rash IVs and Medications Medications Reviewed: Medications were reviewed in detail Lab and Diagnostics Result Diagram: 12/03/16 0239 12/03/16 0239 Assessment & Plan This is a pleasant 76-year-old male with past history of type II diabetes on metformin, Parkinson's disease on carbidopa and omeprazole, and history of BPH with self-catheterization he presented to the ED complaining of acute onset respiratory distress, and dysuria with evidence of urinary tract infection, and possible pneumonia. Patient was admitted for UTI and pneumonia. # Acute severe sepsis, present on admission, Improving with fluids and IV ABx. -Improving with current regimen. - trend lactic acid - IV fluids and antibiotics as above - Continue to monitor blood pressure # Acute respiratory distress with hypoxia, present on admission, resolved. - Patient currently in no acute respiratory distress. Denies shortness of breath or dyspnea - CXR: Cardiomegaly, was slightly widened mediastinum is unchanged from prior, increased, patchy infiltrates diffusely when compared to prior exam as read by ED physician. - CT chest angiogram showed: Suboptimal study for distal lobar, segmental and subsegmental PE due to motion artifact. No pulmonary emboli in the main and proximal lobar pulmonary arteries. - We will give supplemental oxygen if necessary # Community-acquired pneumonia, present on admission, active -Sputum culture ordered and pending -CAP Empiric ABx Ceftriaxone 1000 milligrams every 24 + Azithromycin 500 mg by mouth 24 -Legionella urine antigen, and Strep pneumonia urine antigen negative -Viral PCR (biofire) negative No change to ABx. # Urinary tract infection, present on admission, active - UA showed: Trace protein, moderate occult blood, moderate leukocyte esterase, 3-10 RBCs prior prior field, packed WBCs, urine bacteria many, - Urine culture ordered and pending - Continue Antibiotics as stated above # Hypomagnesemia, present on admission, active -Magnesium 1.4 on admission, recheck tomorrow. He was given IV replacement Diabetes mellitus - SSI low correctional, hold metformin. This is in good control. Urinary retention; self cath prn bliss catheter Parkinson's Disease - continue carbidopa CODE STATUS: Full code PCP: Dr. Luis Medrano DVT PE prophylaxis: SCD's/Enoxiparin/SubQ heparin Q8H Pain Evaluation: Adequate Pain Control VTE Prophylaxis: Sub-Q Heparin (Unfractionated) Resuscitation Status: CPR: Attempt Resuscitation Time spent 30 min Gasper Loera MD Dec 03, 2016 08:14
[2016-12-03] MEDS: Pantoprazole 20 mg ER24 Tablet PO SCH (08:27)
--- NOTE | 2016-12-03 11:56 | DRSVH ---
PROCEDURE: X-RAY BARIUM SWALLOW WITH FOOD & VIDEOGRAPHY ([id number]) INDICATIONS: dysphagia TECHNIQUE: Examination was conducted in conjunction with speech pathology per standard protocol. In the lateral projection, filming was performed of the patient swallowing. AP projection filming may also be performed with patient swallowing. COMPARISON: None. FINDINGS: Function: The oral preparatory phase appears normal, with proper containment. The subsequent oral pr opulsive phase, pharyngeal phase, and esophageal phase of swallowing also appear normal with all prof fered substances. Mild vallecular pooling present. Minimal laryngeal penetration noted with thin li quids. Morphology: No cricopharyngeal bar is identified. No cervical esophageal webs. No Zenker's diverti culum. No strictures. IMPRESSION: Mild vallecular pooling and laryngeal penetration. Dictated by: Rene PIZANO Interpreted: Marian Cruz MD on 12/03/2016 at 11:56 Transcribed by: AKIKO on 12/03/2016 at 11:56 Approved by: Marian Cruz M.D. on 12/03/2016 at 22:18
--- NOTE | 2016-12-03 16:39 | NUR ---
Ambulation and positive blood culture Pt. was assisted out of bed to [facility]. He had one XL BM. He walked in the hallway, using a FWW for balance. He walked 300 feet. He denied SOB or LE weakness. Blood culture positive for gram (-) nelson. No change in current IV antibiotics per Dr. Loera.
--- NOTE | 2016-12-03 16:45 | ST BAR ---
[address] [address] SPEECH BARIUM SWALLOW STUDY PATIENT: SHERRY GREEN : 1940 MR#: [id number] ADMIT: 12/02/2016 JOB ID: [id number] DATE OF SERVICE: 12/03/2016 THERAPIST: Sandra Ceja MA CCC-DISPATCHER MAINTENANCE. PRIMARY CARE PHYSICIAN: Luis Medrano MD. REFERRING PHYSICIAN: Alan Gong MD. [id number] G CODES AND MODIFIERS: 8996 CK, 8997 CJ. PRIMARY DIAGNOSIS: Pneumonia. TREATMENT DIAGNOSIS: Dysphagia. VISITS FROM START OF CARE: One. Further therapy is recommended at this time. Therapy is recommended to target improving palate elevation, strengthening swallowing mechanism and improving timing of swallow. Patient should attend outpatient speech therapy 1-2 visits a week for up to 12 weeks with a followup barium swallow study and the end of that time. SHORT-TERM GOALS and OBJECTIVES: 1. The patient will tolerate dysphagia mechanical textures and nectar thick liquids with no signs or symptoms of aspiration. 2. The patient will tolerate sips of thin liquid after oral care between meals with no signs or symptoms of aspiration. 3. The patient will complete a laryngeal strengthening exercise program targeting laryngeal and pharyngeal strengthening program targeting palatal elevation, and improving the timing of swallow mechanism. LONG-TERM GOAL: Least restrictive diet at time of discharge. CURRENT RELEVANT HISTORY: This is a very pleasant gentleman with a medical history significant for Parkinson's disease who presented at [facility] ED with acute onset difficulty breathing, chills, and clearing secretions. Patient has since been diagnosed with severe sepsis, acute respiratory distress and hypoxia, and pneumonia, as well as a UTI. The patient was seen for clinical bedside swallow evaluation at the request of the physician and findings were significant for hypernasal voice, poor palatal elevation and wet vocal quality on many trials. The patient himself was quite somnolent with flat affect and demonstrated confusion with following directions and monitoring ease of eating and drinking. The current study is being completed today to fully visualize and assess the swallowing mechanism to determine the patient's least restrictive diet. MEDICAL NECESSITY: Aspiration risk. PRIOR LEVEL OF FUNCTION: Unknown. RELEVANT HOSPITALIZATIONS: The patient has come to the emergency department for UTI and ground level fall in the last year. FUNCTIONAL LIMITATIONS: Difficulty clearing secretions per MD report at time of admission and difficulty eating and drinking safely at time of clinical bedside evaluation. BASELINE TEST MEASURES: The patient was seated for the barium swallow study and was viewed laterally. P.o. trials of barium in the following consistencies were given: Thin liquid barium, nectar thick liquid barium, pureed, dysphagia mechanical with barium, and a barium tablet with applesauce. Oral phase: Labial seal was incomplete. Labial escape of thin liquids occurred past the vermilion border on multiple trials. Mastication was complete but AP transit time was significantly slowed due to poor bolus prep. The patient demonstrated the ability to hold the bolus in his oral cavity at times. Palatal elevation was very weak, and while the soft palate laid on the base of the tongue, it did so with a lack of strength. Poor elevation made WELL CONTROL INSTRUCTOR port closure poor. Pharyngeal phase: Premature spillage occurred on all trials. Most significant spillage was to the level of piriform sinus on thin liquid trials. Some vallecular and piriform sinus pooling was seen after thin liquid trials as well. Laryngeal elevation was reduced. Anterior hyoid movement was reduced. Swallow reflex was significantly delayed and seemed quite uncoordinated. Laryngeal penetration occurred on thin liquid trials. Penetration did not reach the level of the vocal folds but it continued and was consistent on all thin liquid trials. Trials of nectar thick liquids were seen without any penetration or increase in vallecular pooling. Esophageal phase: Cricopharyngeal relaxation appeared to be within functional limits. The barium tablet passed through the pharynx and proximal esophagus without difficulty or hesitation. Full esophageal scan could not be viewed due to patient positioning. EVALUATION RESULTS: This patient is a very kind, 76-year-old male who was seen for an initial inpatient modified barium swallow study due to poor performance and clinical bedside swallow evaluation and significant history of Parkinson's disease. The patient presented today with moderate oropharyngeal dysphagia characterized by premature spillage of thin liquid trials, laryngeal penetration of all thin liquid trials, poor palatal elevation with some flaccidity, and vallecular and piriform sinus pooling. RECOMMENDATIONS: At that time were for dysphagia mechanical textures with nectar thick liquids at meals. The patient should receive good oral care between meals and thin liquids via cup are permitted after oral care is completed. Medications should be given in applesauce and patient should be supported with both setup assist and some supervision when eating and drinking due to generalized weakness and some confusion. The results of the study were discussed with the RN. DISPATCHER MAINTENANCE will follow x1 on acute care basis to provide patient and family education. However, this is the diet that is recommended at discharge and the patient should attend some swallow therapy, dysphagia therapy with speech pathology upon discharge. Therapy will focus on improving uvula elevation, and strengthening and timing of range of motion of the swallowing mechanism. Thank you very much for this consultation. I look forward to working with this patient in the future [facility]
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
[2016-12-04] VITALS (8 sets, daily range): BP systolic 131–161; BP diastolic 65–87; PULSE 58–71; RESP 18–22; O2SAT 94–95
[2016-12-04] MEDS: Heparin 5,000 Unit/mL Inj SUBQ SCH ×3 (00:13→16:59)
[2016-12-04] MEDS: 0.9% Sodium Chloride 1,000 ML IV SCH ×2 (04:24→18:25)
--- NOTE | 2016-12-04 05:12 | NUR ---
Restful Night Pt appeared to sleep comfortably between care interventions, all vitals stable and pt denied pain throughout night. Pt A&Ox3, follows commands.
[2016-12-04] MEDS: cefTRIAXone Inj 1,000 MG in Dextrose 5% Minibag Plus 50 ML IV SCH (06:05)
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
[2016-12-04] MEDS: Insulin LISPRO 300 Unit/3 mL Inj SUBQ SCH ×4 (08:00→21:06)
[2016-12-04] MEDS: Pantoprazole 20 mg ER24 Tablet PO SCH (09:16)
--- NOTE | 2016-12-04 10:26 | PCM.PNMED ---
Subjective Date of Service Dec 04, 2016 Subjective Feeling better, still weak and a little confused. No chest or abdomen pain or diarrhea. Not dyspneic. Light cough. Bliss in and urine clear. No overnight events. Exam Vital Signs Vital Sign - Last Date Time Temp Pulse Resp B/P Pulse Ox O2 Delivery O2 Flow Rate FiO2 12/04/16 08:54 36.4 59 18 133/65 94 Room Air Intake and Output 12/03/16 12/03/16 12/04/16 Cumulative From/Thru 15:00 23:00 07:00 12/02/16 01:03 - 12/04/16 06:57 Intake Total 630 ml 835 ml 695 ml 4351 ml Output Total 750 ml 600 ml 950 ml 3875 ml Balance -120 ml 235 ml -255 ml 476 ml Intake Oral 630 ml 405 ml 100 ml 2477 ml IV Total 430 ml 595 ml 1874 ml Output Urine Total 750 ml 600 ml 950 ml 3875 ml # Bowel Movements 1 1 Exam Alert, somnolent. Fluent speech. Appropriate. Anicteric sclera Lungs clear, normal effort Heart regular, No murmur Abdomen soft, NT No edema No rash IVs and Medications Medications Reviewed: Medications were reviewed in detail Lab and Diagnostics Result Diagram: 12/03/1623812/03/16238 Assessment & Plan This is a pleasant 76-year-old male with past history of type II diabetes on metformin, Parkinson's disease on carbidopa and omeprazole, and history of BPH with self-catheterization he presented to the ED complaining of acute onset respiratory distress, and dysuria with evidence of urinary tract infection, and possible pneumonia. Patient was admitted for UTI and pneumonia. #. Acute severe sepsis, present on admission, IResolved. -Improving with current regimen. - trend lactic acid - IV fluids and antibiotics as above - Continue to monitor blood pressure Wean antibiotics to ceftriaxone. Switch to oral . #. Acute respiratory distress with hypoxia, present on admission, resolved. -Possible aspiration, no infiltrate on chest CT #. Urinary tract infection, present on admission, active - UA showed: Trace protein, moderate occult blood, moderate leukocyte esterase, 3-10 RBCs prior prior field, packed WBCs, urine bacteria many, - Klebsiella UTI and septicemia. - Continue Antibiotics as stated above #. Klebsiella septicemia, POA. Improving. Ceftriaxone. # Hypomagnesemia, present on admission, resolved. -Magnesium 1.4 on admission, recheck tomorrow. He was given IV replacement #. Diabetes mellitus 2, POA and stable - SSI low correctional, hold metformin. This is in good control. #. Urinary retention, POA and stable; self cath prn bliss catheter . Discontinue indwelling today. #. Parkinson's Disease, POA and stable. - continue carbidopa #. Debilitation , POA. PT eval today and possible discharge . CODE STATUS: Full code PCP: Dr. Luis Medrano DVT PE prophylaxis: SCD's/Enoxiparin/SubQ heparin Q8H Pain Evaluation: Adequate Pain Control VTE Prophylaxis: Sub-Q Heparin (Unfractionated) Resuscitation Status: CPR: Attempt Resuscitation Gasper Loera MD Dec 04, 2016 10:26 Gasper Loera MD Dec 04, 2016 10:26
[2016-12-04 10:51] LABS: Mean Corpuscular Hemoglobin 28.3 pg (27.0-35.0); Mean Corpuscular Volume 87.7 fL (81-100)
--- NOTE | 2016-12-04 11:19 | NUR ---
NUTRITION ASSESSMENT: ASSESS: Pt is a 76yo M admitted for pneumonia and UTI. He was able to have his diet advanced to dysphagia mechanical and he has been tolerating it well at 50-100% of meals. Continues to be a bit confused. Wt has been stable. PMHX: DM, UTI, Parkinson's LABS: Reviewed. Glu 140, Alb 4.1 MEDS: Reviewed. GI: BMx1 12/03 SKIN: Joseph 14 CURRENT WTS: 118.5kg, BMI 34.5kg/m2, admit wt 117kg, IBW 83kg DIET: Dysphagia mechanical, NT, PO 50-100% EST. NEEDS: BMI Kcals: 2370-2605kcal/day (20-22kcal/kg) Pro: 85-100g/day (1.0-1.2g/kg IBW) NUTRITION DIAGNOSIS: 1.) Chew/swallow difficulty related to weakness and AMS as evidence by need for dysphagia mechanical diet NUTRITION INTERVENTION: 1.) Diet advance per ST 2.) Will add NT Glucerna on L tray MONITOR / EVAL: PO, ST, wt, GI, POC, nutrition status, Will continue to monitor per moderate nutrition risk guidelines.
--- NOTE | 2016-12-04 11:37 | NUR ---
Evaluation completed. Please go to "Notes" then click on "Assessments and Notes" (bottom left corner of screen). Then select appropriate discipline tab on top of screen.
--- NOTE | 2016-12-04 16:31 | NUR ---
Transfer to [facility] Pt. transferred to room 3001 [facility] from room 2006 [facility]. Pt. took all his belongings with him, family was notified. Pt. had his bliss catheter DC'D around noon and voided 200mL, urine pale yellow with no odor. Pt. VS stable and no c/o of SOB or any type of pain. Report given to Mora Boland RN from [facility]. Pt. left with no IV access and attempts where made but did not succeed. Previous IV in right AC came out of Pt. and it was intact. RN on [facility] made aware.
--- NOTE | 2016-12-04 16:51 | NUR ---
Transfer to [facility] Pt arrived to [facility] room 3001 at 1630. Denies any pain/discomfort at this time. Pt stating his is on unit and wondering if she will visit him. Pt voided in urinal 100ml. Introduced to staff and call light/bed controls. Bed in lowest, locked position and call light in reach. Addendum: 12/04/16 at 1709 by OMI JOHNSON RN IV attempted x1, flashback but would not flush. IVT called to place IV.
[2016-12-05] VITALS (8 sets, daily range): BP systolic 109–148; BP diastolic 53–78; PULSE 60–68; RESP 18–20; O2SAT 94–96
[2016-12-05] MEDS: Heparin 5,000 Unit/mL Inj SUBQ SCH ×3 (00:38→17:02)
[2016-12-05] MEDS: cefTRIAXone Inj 1,000 MG in Dextrose 5% Minibag Plus 50 ML IV SCH (06:30)
--- NOTE | 2016-12-05 06:47 | NUR ---
Voiding Patient has been voiding every 1-2 hours. 100-300mls of urine at one time. Bladder scan post void residual 50-150mls. patient reports frequency has been using the urinal independently in bed. will continue to monitor.
[2016-12-05] MEDS: Insulin LISPRO 300 Unit/3 mL Inj SUBQ SCH ×4 (08:00→21:46)
[2016-12-05] MEDS: Pantoprazole 20 mg ER24 Tablet PO SCH (09:07)
--- NOTE | 2016-12-05 12:02 | PCM.PNMED ---
Subjective Date of Service Dec 05, 2016 Subjective denies any new issues/complaints. no events overnight. Exam Vital Signs Vital Sign - Last Date Time Temp Pulse Resp B/P Pulse Ox O2 Delivery O2 Flow Rate FiO2 12/05/16 11:11 Room Air 12/05/16 09:32 36.9 63 20 137/77 95 Intake and Output 12/04/16 12/04/16 12/05/16 Cumulative From/Thru 15:00 23:00 07:00 12/02/16 01:03 - 12/05/16 06:35 Intake Total 346 ml 0 ml 4697 ml Output Total 1150 ml 1975 ml 7000 ml Balance -804 ml -1975 ml -2303 ml Intake Oral 346 ml 0 ml 2823 ml IV Total 1874 ml Output Urine Total 1150 ml 1975 ml 7000 ml # Bowel Movements 0 0 1 General: Alert, Cooperative, No Acute Distress Eyes: Scleral Anicteric Mouth: Mucous Membr Moist/[place] Neck: Supple Chest & Lungs: Chest Wall Normal, Clear to auscultation & percussion Cardiovascular: Regular Rate/Rhythm Abdomen: Non-tender, Non-distended, Normoactive bowel tones, Soft Extremities: No cyanosis/clubbing/edma bilat Neurological: Grossly Neurologically Intact, Normal Speech IVs and Medications Medications Reviewed: Medications were reviewed in detail Lab and Diagnostics Result Diagram: 12/04/16 1041 12/04/16 1041 Assessment & Plan 76-year-old male with past history of type II diabetes on metformin, Parkinson' s disease on carbidopa and omeprazole, and history of BPH with self- catheterization he presented to the ED complaining of acute onset respiratory distress, and dysuria with evidence of urinary tract infection, and possible pneumonia. Patient was admitted for UTI and pneumonia. # Acute severe sepsis, present on admission, Resolved. - Met QSOFA criteria with greater than or equal to 2/3 criteria respiratory rate greater than 22 (RR 28), and [place] Coma Scale less than 14 (patient's [place] Coma Scale is 13). Lactic acid 3.4 - Improving with current regimen. - IV fluids and antibiotics as noted below # Acute respiratory distress with hypoxia, present on admission, resolved. - Possible aspiration, no infiltrate on chest CT # Acute urinary tract infection (UTI), present on admission, active - Klebsiella UTI and septicemia. - Continue with IV Ceftriaxone for now. - Will discuss with ID regarding course of antibiotics # Acute Klebsiella septicemia, present on admission. - Treatment as noted above # Acute hypomagnesemia, present on admission - Resolved # Diabetes mellitus 2, present on admission and stable - SSI low correctional, - Hold metformin # Chronic urinary retention - Continue with self cath prn # Parkinson's Disease, chronic and stable. - continue carbidopa # Debilitation, chronic. Ongoing - continue with physical therapy Dispo: 1-2 days VTE Prophylaxis: Sub-Q Heparin (Unfractionated) Resuscitation Status: CPR: Attempt Resuscitation Rayo Li Dec 05, 2016 12:02
--- NOTE | 2016-12-05 16:51 | NUR ---
Voiding: Patient has been using his urinal throughout the day with an output of 150-200 each time. Patient stated that his urgency to void has decreased. Patient continues to be on IV ABT for UTI. Will continue to monitor
[2016-12-05] MEDS: 0.9% Sodium Chloride 1,000 ML IV SCH (20:06)
--- NOTE | 2016-12-05 23:18 | CONS ---
[address] [address] CONSULTATION REPORT PATIENT: SHERRY GREEN : 1940 MR#: [id number] ADMIT: 12/02/2016 JOB ID: [id number] DATE OF SERVICE: 12/05/2016 REASON FOR CONSULTATION: Complicated bacteremic Klebsiella urinary tract infection. 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 His relevant past medical history revolves around a diagnosis of Parkinson's disease and he also has diabetes. At times he has had urinary retention with Falcon catheter, though not recently. The patient was seen in this hospital about a month ago when he fell and was seen in the emergency department. At that time, he was found to have pyuria and probable UTI, and was treated outpatient Keflex. It seems as if this resolved whatever urinary tract symptoms he had at that time, but the records are unclear. He does not recall much about the events of this treatment. He does tell us he has fallen with increasing frequency due to his Parkinson's disease. This admission begins on December 02 when he was admitted with encephalopathy, chills and shortness of breath. The patient was worked up aggressively, including a CT angiogram, which failed to disclose pneumonia or pulmonary embolism, but he was found to have positive blood in urine cultures for Klebsiella. His mental status has improved rapidly on the broad-spectrum antibiotics and ID consultation is now requested. This afternoon, the patient tells us he is feeling back to something approaching his normal state of health. He no longer has any fevers, chills or sweats. Does not have any particular headache. He is not short of breath anymore. He has no chest pain, nausea, vomiting, diarrhea. Interestingly, he states he did not have any dysuria at any point that he can recall, but he has noticed an increase in frequency prior to admission. PAST MEDICAL HISTORY: 1. Parkinson's disease. 2. Diabetes mellitus. 3. Bladder retention, at times requiring Falcon, though not in the recent weeks. SOCIAL HISTORY: The patient lives with his sister in the [place] area. He is a retired preconstruction manager. He quit smoking almost 40 years ago. Does not drink any alcohol anymore and does not inject drugs. FAMILY HISTORY: Negative for tuberculosis in first and second-degree relatives to the best of his knowledge. REVIEW OF SYSTEMS: No headache, no acute visual change, no sore throat, trouble swallowing, cough, shortness of breath or chest pain. No nausea, vomiting, diarrhea. He did not have dysuria, but did have increasing frequency. The patient states he is a bit unstable on his feet. He sometimes uses a stick to walk with to avoid falling, but he has fallen a number of times, including the October fall that led to the emergency department visit. Remainder of the review of systems is negative. PHYSICAL EXAMINATION: Reveals a fairly comfortable gentleman. He is afebrile and has been really since admission. His highest temperature 37.9, has been less ever since; currently, 36.8, pulse 60, respiratory rate 18, blood pressure 131/78. Saturating well on room air. He is alert, appropriate and affable, but he does have a bit of the so-called mass-like facies of Parkinson's. He appears to have a very flat affect. Head without trauma. Eyes without conjunctivitis. Oral cavity: No thrush. Neck without nodes or apparent JVD. Lungs: Reasonably clear. Cardiac tones regular rate and rhythm. No significant murmur. Abdomen: Soft and nontender. No suprapubic tenderness. He does not have a Falcon at this point. He has no skin rash. No evidence of synovitis. No cellulitis. No venous stasis changes. Neurologically: He does have tremor which is evident even at rest. He states he has balance problems so we did not attempt to walk him. Remainder of the physical unremarkable. LABORATORIES: Include white count of 4000 when he came in, bounced to 13,000, now 6000. Platelet count 129. Creatinine 0.91. LFTs entirely normal. Procalcitonin was extremely elevated at 46.5 two days ago, now down to 12.3, so falling by about half a day, which is what we would hope for with appropriate antibiotics. Urine was packed with white cells when he came, that urine culture grew Klebsiella pneumonia. Blood cultures grew the same organism. It is a very susceptible Klebsiella being resistant only to ampicillin as all Klebsiella species are. A CT angio of the chest showed moderate coronary artery calcification. No PE was seen and no significant infiltrate. IMPRESSION: This is a 76-year-old gentleman who is relatively healthy except for progressive Parkinson's disease with increasingly frequent falls. He has had urinary retention at times in the past requiring a Falcon, but not in the past month. He now presents with a complicated urinary tract infection with Klebsiella isolated from both blood and urine. The patient is rapidly improving and states he is approaching his normal state of health. He also tells us he is hooked in with Dr. Cruz of Urology, who has examined him within the past few months apparently. RECOMMENDATIONS: 1. The patient's antibiotics, which are currently ceftriaxone 1 g once a day, can be switched to Cipro 500 mg twice a day if there are no drug interactions. We are going to go ahead and change to Cipro 500 mg p.o. b.i.d. with a plan to continue that for eight days, through December 13. 2. The patient should seek followup with Dr. Cruz of Urology given that he has had yet another complicated urinary tract infection with bacteremia. 3. Before he leaves tomorrow will get an ultrasound of the kidneys to make sure there is no hydronephrosis structural abnormalities. 4. We did note that there is interaction between one of his Parkinson's drugs and Cipro, but his QTc is 0.48 and Cipro tends to be the least QTc prolonging of all the quinolone agents so I think the short term use will be reasonably safe. Thank you very much for this consult.
[2016-12-06] MEDS: Heparin 5,000 Unit/mL Inj SUBQ SCH ×2 (00:32→08:22)
[2016-12-06 01:04] VITALS: BP 116/62; PULSE 62; RESP 18; O2SAT 97
[2016-12-06 03:23] VITALS: PULSE 55
[2016-12-06 05:43] VITALS: BP 113/74; PULSE 68; RESP 18; O2SAT 96
[2016-12-06 06:03] LABS: BASOPHILS % (AUTO) 0.5 % (0-3); EOSINOPHILS % (AUTO) 4.3 % (0-5); MONOCYTES % (AUTO) 10.5 % (4-12); Mean Corpuscular Hemoglobin 28.5 pg (27.0-35.0); Mean Corpuscular Volume 87.6 fL (81-100); NEUTROPHILS % (AUTO) 60.2 % (40-74); Platelet Count 159 bil/L (150-400)
[2016-12-06 06:28] LABS: Magnesium 1.8 mg/dL (1.6-2.6)
--- NOTE | 2016-12-06 06:29 | NUR ---
Insomnia Appears to have stayed up most of night, inquired to daytime sleep and regular sleep patterns: "I don't sleep all that much how about you?" When clearing IV volume infused @06:00 patient sound asleep.
[2016-12-06 07:55] VITALS: BP 114/72; PULSE 56; RESP 20; O2SAT 95
[2016-12-06 08:00] VITALS: PULSE 54
[2016-12-06] MEDS: Insulin LISPRO 300 Unit/3 mL Inj SUBQ SCH (08:00)
[2016-12-06] MEDS: Pantoprazole 20 mg ER24 Tablet PO SCH (08:21)
[2016-12-06] MEDS ORDERED: CIPR-231 PO (10:43)
--- NOTE | 2016-12-06 10:45 | NUR ---
Social Work: Discharge Data: Pt is on day 4 of hospitalization. EMR reviewed. PT worked with pt today and he is doing much better than yesterday and walked around the entire unit. PT is recommending home with outpt PT. D/C orders are in. COATING AND BAKING OPERATOR spoke with pt's sister regarding d/c. She states pt has an appointment with his PCP on Friday and she plans to get him set up with outpt PT and ST. She will be in around noon today to pick pt up. No further d/c planning needs at this time. COATING AND BAKING OPERATOR will continue to follow if needs arise. Assessment: Pt who is independent at baseline. Plan: Pt will d/c home via POV with his sister with outpt PT and ST. No further d/c planning needs at this time. COATING AND BAKING OPERATOR will continue to follow if needs arise. ALKA Santana
--- NOTE | 2016-12-06 10:52 | PCM.DIMED ---
Discharge Instructions Date of Service Dec 06, 2016 Dates of Hospitalization Dec 02, 2016 at 03:57 Discharge Diagnosis Discharge Diagnosis # Acute severe sepsis with source of infection as noted below, present on admission, Resolved. - Met QSOFA criteria with greater than or equal to 2/3 criteria respiratory rate greater than 22 (RR 28), and [place] Coma Scale less than 14. Lactic acid 3.4 # Acute Klebsiella urinary tract infection (UTI), present on admission. # Acute Klebsiella septicemia, present on admission. Under treatment with antibiotics # Acute respiratory distress with hypoxia, present on admission, resolved. - Possible aspiration, no infiltrate on chest CT # Acute hypomagnesemia, present on admission - Resolved # Diabetes mellitus 2, present on admission and stable # Chronic urinary retention, present on admission and treated with self catheterization # Parkinson's Disease, chronic and stable. Diet Heart Healthy, Diabetic Activity Outpatient Physical Therapy, Other (as tolerated) Call your provider Fever or Chills, Shortness of breath, Chest pain, Vomitting, Excessive diarrhea Patient Instructions Seek immediate medical attention if any new or worsening signs or symptoms occur. Follow-up plan 1. Followup with primary care provider within one week 2. Followup with your urologist in 7-10 days Follow-up Provider: Luis Medrano MD Provider: Paul Cruz MD, Masoud Dec 06, 2016 10:52
--- NOTE | 2016-12-06 13:15 | PROG NOTE ---
[address] [address] PROGRESS NOTE PATIENT: SHERRY GREEN : 1940 MR#: [id number] ADMIT: 12/02/2016 JOB ID: [id number] DATE: 12/06/2016 REASON FOR FOLLOWUP: Bacteremic Klebsiella urinary tract infection in a patient with underlying severe Parkinson's who does not currently have a Falcon but has in the past. INTERVAL HISTORY: The patient reports overnight he has been very tired. When we encountered the patient in his room he is half asleep. He rouses and answers questions but quickly drifts back to sleep. No fevers, no chills. No cough, nausea, vomiting, diarrhea, dysuria. PHYSICAL EXAMINATION: Reveals an afebrile gentleman, no acute distress. Temp 36.4, pulse in the 50s to 60s. Respiratory rate 20, blood pressure 114/72. Mental status is clear, though he is quite lethargic. Lungs clear. Cardiac tones: No new murmur. Regular rate and rhythm. Abdomen soft, nontender. No flank tenderness. No skin rash. LABORATORIES: Include white count completely normal, 6000. Completely normal diff at this point. Creatinine 1.03, which is stable. Procalcitonin coming down nicely from 46 three days ago, to 12 yesterday, to 6.8 today. As was discussed yesterday, both blood and urine are growing Klebsiella which is sensitive to many drugs including exquisitely sensitive to Cipro. IMAGING: We have ordered an ultrasound of the kidneys to evaluate for possible structural abnormalities or her hydronephrosis and that is pending. Otherwise there are no pending radiographic studies. IMPRESSION: This patient seems to be doing well with his relatively uncomplicated bacteremic Klebsiella complicated urinary tract infection. He has followup and has been seen in the past by Dr. Cruz of Urology. RECOMMENDATIONS: 1. The patient can be discharged on Cipro to be taken 500 mg p.o. b.i.d. through December 13. 2. I see no problem with his discharge today as long as his renal ultrasound does not show anything which would require surgical intervention. 3. ID will be signing off at this time.
--- NOTE | 2016-12-06 14:04 | NUR ---
Discharge nursing Note: Patient was discharged to home at 1348. His IV was removed intact. His Telemetry was discontinued. All of his discharge information was reviewed with him and his sister ( behavioral health care manager) and his questions were answered to his satisfaction.Patient was brought to the hospital lobby in a wheel chair by nursing staff member and he was driven to home by his sister.
--- NOTE | 2016-12-06 14:08 | DRSVH ---
PROCEDURE: US RENAL SONOGRAM INDICATIONS: urinary retention. uti. ? hydornephrosis TECHNIQUE: Real-time scanning was performed of the kidneys and bladder, with image documentation. COMPARISON: [facility], CT, CT ABD PELVIS W&WO CON IVP, 12/08/2015, 12:53. FINDINGS: Kidneys: Right kidney normal length measuring 11.2 cm with cortical thickness of 1.8 cm. The left k idney is positioned within the pelvis measuring 8.8 cm in length with renal cortical thickness of 1.3 cm. Exophytic cysts again seen involving the right kidney largest measuring roughly 4 cm. No hydro nephrosis. Left kidney nonobstructing stone seen measuring 1.1 cm. The proximal left ureter is prom inent measuring 1.8 cm. Bladder: Pre-void bladder volume is 320 mL. Post-void residual is 343 mL. Pre-void images demonstr ate no intraluminal masses or stones. On pre-void images, neither ureteral jets are noted with color Doppler interrogation. (Of note, ureteral jets may not be detectable in up to 25% of cases due to i nsufficient differences in specific gravity between ureteral and bladder urine). Miscellaneous: No free pelvic fluid. IMPRESSION: 1. 1 cm nonobstructing left renal calcification and again the left kidney is noted to be within the p cristina. 2. Right renal cyst redemonstrated. 3. Significant postvoid residual estimated at 343 cc. Dictated by: Rene CARVER Interpreted: Marian Cruz MD on 12/06/2016 at 14:04 Transcribed by: AKIKO on 12/06/2016 at 14:07 Approved by: Marian Cruz M.D. on 12/06/2016 at 15:59
--- NOTE | 2016-12-06 15:04 | PCM.DC.MED ---
Discharge Summary Date of Service Dec 06, 2016 Dates of Hospitalization Date of Hospital Admission Dec 02, 2016 at 03:57 Date of Discharge: Dec 06, 2016 Providers: Admitting Physician: Britney Madden DO Primary Care Physician: Luis Medrano MD Attending Physician: Britney Madden DO Diagnosis at Time of Discharge Diagnosis at Time of Discharge # Acute severe sepsis with source of infection as noted below, present on admission, Resolved. - Met QSOFA criteria with greater than or equal to 2/3 criteria respiratory rate greater than 22 (RR 28), and Eder Coma Scale less than 14. Lactic acid 3.4 # Acute Klebsiella urinary tract infection (UTI), present on admission. # Acute Klebsiella septicemia, present on admission. Under treatment with antibiotics # Acute respiratory distress with hypoxia, present on admission, resolved. - Possible aspiration, no infiltrate on chest CT # Acute hypomagnesemia, present on admission - Resolved # Diabetes mellitus 2, present on admission and stable # Chronic urinary retention, present on admission and treated with self catheterization # Parkinson's Disease, chronic and stable. Consultations 1. ID Procedures XRay, CTs & MRIs Date of Service: 12/02/16 0101 PROCEDURE: X-RAY CHEST ONE VIEW, PORTABLE ([id number]) IMPRESSION: Expiratory chest demonstrating no definite acute cardiopulmonary process. Dictated by: Rene Marshall RRA Interpreted: Imelda Seo MD on 12/02/2016 at 9:05 Transcribed by: RAO on 12/02/2016 at 9:06 Approved by: Imelda Seo MD, PhD on 12/02/2016 at 17:17 Date of Service: 12/02/16 0204 PROCEDURE: CT ANGIO CHEST PULMONARY EMBOLISM ([id number]) IMPRESSION: 1. Suboptimal examination due to respiratory motion artifacts. No definitive central pulmonary emboli. 2. Moderate coronary artery calcification consistent with atherosclerosis. 3. Small hiatal hernia. No significant discrepancy with the rotor coil taper radiology preliminary report. Dictated by: Jovani Vaughan M.D. on 12/02/2016 at 8:10 Approved by: Jovani Vaughan M.D. on 12/02/2016 at 8:14 Other Diagnostics Date of Service: 12/03/16 0800 PROCEDURE: X-RAY BARIUM SWALLOW WITH FOOD & VIDEOGRAPHY ([id number]) IMPRESSION: Mild vallecular pooling and laryngeal penetration. Dictated by: Rene PIZANO Interpreted: Marian Cruz MD on 12/03/2016 at 11: 56 Transcribed by: AKIKO on 12/03/2016 at 11:56 Approved by: Marian Cruz M.D. on 12/03/2016 at 22:18 Date of Service: 12/06/16 0927 PROCEDURE: US RENAL SONOGRAM IMPRESSION: 1. 1 cm nonobstructing left renal calcification and again the left kidney is noted to be within the pelvis. 2. Right renal cyst redemonstrated. 3. Significant postvoid residual estimated at 343 cc. Dictated by: Rene PIZANO Interpreted: Marian Cruz MD on 12/06/2016 at 14: 04 Transcribed by: AKIKO on 12/06/2016 at 14:07 Brief History 76-year-old male with past history of type II diabetes on metformin, Parkinson' s disease on carbidopa and omeprazole, and history of BPH with self- catheterization he presented to the ED complaining of acute onset respiratory distress, and dysuria with evidence of urinary tract infection, and possible pneumonia. Patient was admitted for UTI and pneumonia. Hospital Course # Acute severe sepsis, present on admission, Resolved. - Met QSOFA criteria with greater than or equal to 2/3 criteria respiratory rate greater than 22 (RR 28), and [place] Coma Scale less than 14 (patient's Eder Coma Scale is 13). Lactic acid 3.4 - Improving with current regimen. - IV fluids and antibiotics as noted below # Acute urinary tract infection (UTI), present on admission, active - Klebsiella UTI and septicemia. - Treated with IV Ceftriaxone during this hospital - ID consulted and per recommendation discharge on Cipro to be taken 500 mg p.o. b.i.d. through December 13. # Acute Klebsiella septicemia, present on admission. - Treatment as noted above # Acute respiratory distress with hypoxia, present on admission, resolved. - Possible aspiration, no infiltrate on chest CT # Acute hypomagnesemia, present on admission - Resolved # Diabetes mellitus 2, present on admission and stable - SSI low correctional, - Hold metformin # Chronic urinary retention - Continue with self cath prn # Parkinson's Disease, chronic and stable. - continue carbidopa # Debilitation, chronic. Ongoing - continue with physical therapy as outpatient by day of d/c lungs clear to auscultation bilaterally. Abdomen soft, nt, nd, + bs. Exam Vital Signs (Last) Date Time Temp Pulse Resp B/P Pulse Ox O2 Delivery O2 Flow Rate FiO2 12/06/16 08:00 54 12/06/16 07:55 36.4 20 114/72 95 Room Air Test 12/02/16 01:00 12/02/16 01:45 12/03/16 08:20 12/04/16 10:41 Prothrombin Time 11.6sec (8.1-12.5) Prothromb Time International Ratio 1.08ratio Activated Partial Thromboplast Time 22.2sec (22.8-33.0) Hemoglobin A1c 6.5% (4.8-5.6) Troponin T < 0.010ug/L (0.0-0.011) Pro-B-Type Natriuretic Peptide 195.9pg/mL (0-486) Urine Color Straw (YELLOW) Urine Appearance Slightly cloudy Urine pH 5.0 (5.0-8.0) Urine Specific [place] 1.020 (1.003-1.035) Urine Protein Tracemg/dL (NEG,TRACE) Urine Glucose (UA) Negativemg/dL (NEGATIVE) Urine Ketones Negativemg/dL (NEGATIVE) Urine Occult Blood Moderate (NEGATIVE) Urine Nitrite Negative (NEGATIVE) Urine Bilirubin Negative (NEGATIVE) Urine Urobilinogen Normalmg/dL (NORMAL) Urine Leukocyte Esterase Moderate (NEGATIVE) Urine RBC 3-10/hpf (0-2) Urine WBC Packed/hpf (0-5) Urine Epithelial Cells Occasional/hpf (NONE-MOD) Urine Crystals None seen (NONE SEEN) Urine Bacteria Many/hpf (NONE-FEW) Urine Hyaline Casts None/lpf (NONE) Urine Granular Casts None seen (NONE SEEN) Urine Waxy Casts None seen (NONE SEEN) Urine Red Blood Cell Casts None seen (NONE SEEN) Urine White Blood Cell Casts None seen (NONE SEEN) Urine Mucus None seen (None Seen) Urine Trichomonas None seen (NONE SEEN) Urine Yeast None (NONE SEEN) Urine Culture Reflexed Indicated Urine Legionella pneumophilia Ag Negative (Negative) Lactic Acid Level 1.0mmol/L (0.4-2.0) Total Bilirubin 0.3mg/dL (0.0-1.2) Aspartate Amino Transf (AST/SGOT) 21U/L (0-50) Alanine Aminotransferase (ALT/SGPT) 8U/L (0-44) Alkaline Phosphatase 93U/L (25-160) Total Protein 5.6g/dL (6.4-8.4) Albumin 3.2g/dL (3.4-5.0) Test 12/06/16 05:21 White Blood Count 6.0th/mm3 (3.8-10.1) Red Blood Count 4.60mil/mm3 (4.40-5.80) Hemoglobin 13.1g/dL (13.8-17.2) Hematocrit 40.3% (41.0-50.0) Mean Corpuscular Volume 87.6fL (81-100) Mean Corpuscular Hemoglobin 28.5pg (27.0-35.0) Mean Corpuscular Hemoglobin Concent 32.5% (32.0-37.0) Red Cell Distribution Width 13.6% (12.3-15.4) Platelet Count 159bil/L (150-400) Neutrophils (%) (Auto) 60.2% (40-74) Lymphocytes (%) (Auto) 24.2% (14-46) Monocytes (%) (Auto) 10.5% (4-12) Eosinophils (%) (Auto) 4.3% (0-5) Basophils (%) (Auto) 0.5% (0-3) Sodium Level 140mEq/L (134-144) Potassium Level 4.2mEq/L (3.5-5.2) Chloride Level 102mEq/L (97-108) Carbon Dioxide Level 26mmol/L (18-29) Blood Urea Nitrogen 17mg/dL (8-27) Creatinine 1.03mg/dL (0.76-1.27) Estimat Glomerular Filtration Rate 75mL/min (>59) Glucose Level 124mg/dL (60-99) Calcium Level 9.2mg/dL (8.5-10.1) Magnesium Level 1.8mg/dL (1.6-2.6) Procalcitonin 6.83ng/mL (0.00-0.08) Discharge Medications Discharge Medications Aspirin (Aspirin) 81 Mg Tablet 81 MG PO DAILY (Reported) Atorvastatin (Lipitor) 20 Mg Tablet 20 MG PO DAILY (Reported) Carbidopa/Levodopa 25-100 mg (Carbidopa/Levodopa 25-100 mg) 1 Each Tablet 2 TAB PO TID (Reported) Ciprofloxacin (Cipro) 500 Mg Tablet 500 MG PO BID Prescribed by: ZENIA GONSALEZ MD Donepezil (Donepezil) 10 Mg Tablet 10 MG PO HS (Reported) Finasteride (Finasteride) 5 Mg Tablet 5 MG PO DAILY (Reported) Metformin (Metformin) 500 Mg Tablet 500 MG PO BID (Reported) Omeprazole (Omeprazole) 20 Mg Capsule.dr 20 MG PO DAILY (Reported) Tamsulosin (Flomax) 0.4 Mg Capsule 0.4 MG PO DAILY (Reported) Followup Plan Disposition: Home Follow-up plan 1. Followup with primary care provider within one week 2. Followup with your urologist in 7-10 days Discharge Diet: Heart Healthy, Diabetic Discharge Activity: Outpatient Physical Therapy, Other (as tolerated) Patient Instructions Seek immediate medical attention if any new or worsening signs or symptoms occur. Follow-up Provider: Luis Medrano MD Provider: Paul Cruz MD Time spent 35 min copies to: Luis Medrano MD; Paul Cruz MD, Masoud Dec 06, 2016 15:04
== END 2016-12-06 13:56 | disposition home or self-care (01) | DRG 872 ==
LOC: SED 00:54 → OBSVTOIN 03:57 → PCC 03:57 → MPC 12-04 16:39
PROVIDERS: ADMIT Internal Medicine; ATTEND Internal Medicine
DX: A41.59 Other Gram-negative sepsis (principal); N39.0 Urinary tract infection, site not specified; E11.9 Type 2 diabetes mellitus without complications; G20 Parkinson's disease; N40.1 Benign prostatic hyperplasia with lower urinary tract symptoms; R33.8 Other retention of urine; E83.42 Hypomagnesemia; R53.81 Other malaise; Z16.11 Resistance to penicillins; R09.02 Hypoxemia; Z79.82 Long term (current) use of aspirin

== ENCOUNTER 2017-03-10 02:02 | Inpatient (IN) | payer MEDICARE, OTHER ==
[2017-03-10] VITALS (12 sets, daily range): BP systolic 152–193; BP diastolic 66–87; PULSE 63–82; RESP 13–22; O2SAT 94–98
[~2017-03-10] VITALS: Ht 185.4 cm; Wt 122.2 kg
[~2017-03-10 02:02] MED LIST changes: +ASPI-973 PO; -ASPI81TA40 PO; +ATOR20TA PO; +CARB1TAB14 PO; -CEPH-512 PO; +CIPR-231 PO; +DONE10TA42 PO; +FINA5TAB9 PO; -LOVA40TA PO; +METF500T4 PO; +OMEP20CA11 PO; +TAMS0.4C98 PO
--- NOTE | 2017-03-10 02:08 | ED.REPORT ---
HPI-General Illness Date of Service Mar 10, 2017 ED Provider: Gage Treviño MD The pt is a 76 y/o male w/ a hx of diabetes, Parkinson's disease, hyperlipidemia and both hypertension and hypotension presenting to the ED via EMS due to increased difficultly ambulating. They report that the pt was walking w/ his cane normally earlier today at around 1800, falling asleep in his recliner, and being unable to get up from it after that. They also report the pt is experiencing shoulder soreness, and leg cramping but not experiencing any pain or slurred speech. The pt reports that his smile isn't usually crooked. The pt was hospitalized 3 months ago for pneumonia. Nursing Notes Stated Complaint: WEAKNESS Chief Complaint: General Complaint Nursing Notes Reviewed: Yes Allergies: Coded Allergies: No Known Allergies (Verified Allergy, Mild, 03/25/16) Scheduled Aspirin (Aspirin) 81 Mg Tablet 81 MG PO DAILY Atorvastatin (Lipitor) 20 Mg Tablet 20 MG PO DAILY Carbidopa/Levodopa 25-100 mg (Carbidopa/Levodopa 25-100 mg) 1 Each Tablet 2 TAB PO TID Ciprofloxacin (Cipro) 500 Mg Tablet 500 MG PO BID Donepezil (Donepezil) 10 Mg Tablet 10 MG PO HS Finasteride (Finasteride) 5 Mg Tablet 5 MG PO DAILY Metformin (Metformin) 500 Mg Tablet 500 MG PO BID Omeprazole (Omeprazole) 20 Mg Capsule.dr 20 MG PO DAILY Tamsulosin (Flomax) 0.4 Mg Capsule 0.4 MG PO DAILY General Time Seen by MD: 02:06 Chief Complaint Other (Difficulty ambulating ) Hx Obtained From: Patient, EMS Arrived By: Ambulance Sudden in Onset?: Yes Onset Occurred: Just prior to arrival Symptom Duration: Since onset Recent Healthcare: Recent doctor visit, Recent hospitalization Similar Sx Previous: Yes )( TPA Administration/Criteria Stroke Thrombolytic Therapy : TPA Considered: No TPA Administered Intravenously: No, not indicated )( CVA Risk Stratification Diabetes mellitus Hyperlipidemia Hypertension Risk factors reviewed Past Medical History Past Medical History Notes: PCP: Dr. Medrano Past Medical History Diabetes mellitus Urinary retention; bliss catheter Parkinson's Disease Strokes HTN Pneumonia Hypotension Hyperlipidemia UTI Past Surgical History Reports: Tonsillectomy Smoking History Never Smoker Social History Other Social History: Good social support, Local resident Ambulatory Status Cane Review of Systems Shoulder "soreness"; Leg cramping; Full Review of Systems Cardiovascular: Denies: Chest pain GI: Denies: Abdominal pain Neurologic: Reports: Problem walking, Weakness Complete sys rev & neg: except as marked. Physical Exam Vital Signs Vital Signs Date Time Temp Pulse Resp B/P Pulse Ox O2 Delivery O2 Flow Rate FiO2 03/10/17 05:02 72 13 157/76 98 Room Air 03/10/17 02:10 36.4 67 15 158/66 97 Room Air Initial VS: Reviewed, Vital signs normal General/Constitutional: Awake, Alert Head / Eyes: Atraumatic, Normocephalic ENT: Atraumatic, Airway patent, Mucous membranes moist Neck: Atraumatic, Supple, Full range of motion Respiratory / Chest: Atraumatic, Breath sounds NL, Breath sounds = bilat, No respiratory distress Cardiovascular: Heart rate NL, Regular rhythm, Heart sounds NL Upper Extremities Upper Extremity / MS: Full range of motion, Neurologic intact, Vascular intact Skin: Atraumatic, Color NL, No rash, Warm, Dry Neurologic: No sensory deficits Speech: Positive: Slurred Focal Weakness: Positive: Lower extremity R, Negative: Upper extremity bilat R facial droop Interpretation & Diagnostics Lab Results Interpretation Result Diagram: 03/10/17 0244 03/10/17 0244 Test 03/10/17 02:44 03/10/17 03:30 03/10/17 04:45 White Blood Count 9.3th/mm3 (3.8-10.1) Red Blood Count 5.06mil/mm3 (4.40-5.80) Hemoglobin 14.8g/dL (13.8-17.2) Hematocrit 44.2% (41.0-50.0) Mean Corpuscular Volume 87.4fL (81-100) Mean Corpuscular Hemoglobin 29.2pg (27.0-35.0) Mean Corpuscular Hemoglobin Concent 33.5% (32.0-37.0) Red Cell Distribution Width 13.6% (12.3-15.4) Platelet Count 171bil/L (150-400) Neutrophils (%) (Auto) 82.6% (40-74) Lymphocytes (%) (Auto) 11.2% (14-46) Monocytes (%) (Auto) 5.5% (4-12) Eosinophils (%) (Auto) 0.4% (0-5) Basophils (%) (Auto) 0.2% (0-3) Prothrombin Time 11.2sec (8.1-12.5) Prothromb Time International Ratio 1.05ratio Activated Partial Thromboplast Time 25.9sec (22.8-33.0) Sodium Level 138mEq/L (134-144) Potassium Level 4.6mEq/L (3.5-5.2) Chloride Level 98mEq/L (97-108) Carbon Dioxide Level 25mmol/L (18-29) Blood Urea Nitrogen 26mg/dL (8-27) Creatinine 1.02mg/dL (0.76-1.27) Estimat Glomerular Filtration Rate 76mL/min (>59) Glucose Level 197mg/dL (60-99) Calcium Level 9.6mg/dL (8.5-10.1) Total Bilirubin 0.3mg/dL (0.0-1.2) Aspartate Amino Transf (AST/SGOT) 17U/L (0-50) Alanine Aminotransferase (ALT/SGPT) 14U/L (0-44) Alkaline Phosphatase 103U/L (25-160) Troponin T 0.010ug/L (0.0-0.011) Total Protein 7.0g/dL (6.4-8.4) Albumin 4.0g/dL (3.4-5.0) Hold Chase Top Tube Received (Received) Alcohols < 10mg/dL (0-10) Urine Color Yellow (YELLOW) Urine Appearance Clear (CLEAR,HAZY) Urine pH 5.0 (5.0-8.0) Urine Specific [place] 1.025 (1.003-1.035) Urine Protein Negativemg/dL (NEG,TRACE) Urine Glucose (UA) Negativemg/dL (NEGATIVE) Urine Ketones Negativemg/dL (NEGATIVE) Urine Occult Blood Negative (NEGATIVE) Urine Nitrite Negative (NEGATIVE) Urine Bilirubin Negative (NEGATIVE) Urine Urobilinogen Normalmg/dL (NORMAL) Urine Leukocyte Esterase Negative (NEGATIVE) Urine RBC 0-2/hpf (0-2) Urine WBC 0-5/hpf (0-5) Urine Epithelial Cells Moderate/hpf (NONE-MOD) Urine Crystals None seen (NONE SEEN) Urine Bacteria Few/hpf (NONE-FEW) Urine Hyaline Casts None/lpf (NONE) Urine Granular Casts None seen (NONE SEEN) Urine Waxy Casts None seen (NONE SEEN) Urine Red Blood Cell Casts None seen (NONE SEEN) Urine White Blood Cell Casts None seen (NONE SEEN) Urine Mucus None seen (None Seen) Urine Trichomonas None seen (NONE SEEN) Urine Yeast None (NONE SEEN) Urinalysis Comment None Urine Culture Reflexed Not indicated Triglycerides Level 98mg/dL (0-149) Cholesterol Level 161mg/dL (100-199) LDL Cholesterol, Calculated 90.400mg/dL (0-99) VLDL Cholesterol 19.600mg/dL HDL Cholesterol 51mg/dL (>39) Cholesterol/HDL Ratio 3.16 (0.0-4.4) Lab Results Interpretation: Elevated blood glucose ECG Interpretation ECG Interpretation: Rate 69 NSR Prolonged MA interval RBBB Left ventricular hypertrophy Time: 02:15 Interpreted by: ED physician X-Ray Chest Interpretation Chest Xray Interpretation: Impression: No acute findings View: Portable, 1 view Interpretation / Wet Read by: Wet read ED physician CT Head Interpretation Impression: No CT evidence of hemorrhage, mass, or acute infarct. This report was transmitted to the emergency room at 02/28/17 - 2:59:55 AM PDT. Study: Head CT no contrast Interpretation / Wet Read by: Interpret - Radiologist Re-Eval/Medical Decision Med Decision/Clinical Course 76-year-old male with a history of Parkinson's and CVA presents with muscle weakness and inability to walk. His last known normal was 1800 hrs. last evening. He appears to have some facial asymmetry, this was not noted by the family and resolved during the visit. He has symmetric weakness of lower extremities and no sensory deficits. CT scan is negative. His labs are normal. He is being admitted by the hospitalist service for further evaluation for CVA. Source of Hx: Old records Time of Eval: 04:33 Re-Evaluation/Progress Note: Pt rechecked. Informed pt of need for admission. Pt understands and agrees with plan for admission. All questions addressed. Consultation : Referral / Consult Name: Adarsh Rios MD Consulted With: Hospitalist Call Returned at: 04:44 Wrapper Rewinder: Will see patient, Agrees with eval, Agrees with plan, Accepts admit Counseled Regarding: Diagnosis, Lab results, Need for admission Discharge & Departure Primary Impression: Weakness Additional Impression: Unable to ambulate Ruled Out: CVA (cerebral vascular accident) Disposition: ADMITTED TO HOSPITAL Discharge Condition All VS Reviewed: Yes Condition: Stable Referrals: Luis Medrano MD (PCP) [facility] Attestation Portions of this note were transcribed by Jadiel Thorpe. I, Dr. Treviño personally performed the history, physical exam and medical decision-making; I reviewed and confirmed the accuracy of the information in the transcribed note. Signed by : Tera العلي, 03/10/17 and 0236. copies to: Luis Medrano MD, Gage Davis MD Mar 10, 2017 02:08 Jadiel Thorpe Mar 10, 2017 02:14
[2017-03-10 02:50] LABS: BASOPHILS % (AUTO) 0.2 % (0-3); EOSINOPHILS % (AUTO) 0.4 % (0-5); MONOCYTES % (AUTO) 5.5 % (4-12); Mean Corpuscular Hemoglobin 29.2 pg (27.0-35.0); Mean Corpuscular Volume 87.4 fL (81-100); NEUTROPHILS % (AUTO) 82.6 % (40-74); Platelet Count 171 bil/L (150-400)
[2017-03-10 03:08] LABS: INR 1.05 ratio
[2017-03-10 04:11] LABS: APPEARANCE,URINE CLEAR (CLEAR,HAZY); COLOR,URINE YELLOW (YELLOW); OCCULT BLOOD,URINE NEGATIVE (NEGATIVE); UROBILINOGEN,URINE NORMAL (NORMAL)
[2017-03-10] MEDS ORDERED: Ondansetron 2 mg/mL 2 mL Inj IVPUSH PRN (04:45)
[2017-03-10] MEDS ORDERED: Polyethylene Glycol (PEG) 17 Gm Powder PO PRN (04:45)
[2017-03-10] MEDS ORDERED: Alum-Mag Hydrox-Simeth 30 mL Suspension PO PRN (04:45)
[2017-03-10] MEDS ORDERED: Labetalol 5 mg/mL 4 mL Inj IVPUSH PRN (04:45)
[2017-03-10] MEDS ORDERED: Glucose 40% Oral Gel 15 Gm Tube PO PRN (04:55)
--- NOTE | 2017-03-10 06:14 | NUR ---
Admit Pt arrived onto unit approx 0600 by ED on bed and transferred to hospital bed by 4 staff members. Pt voided in urinal while laying down with assistance by STATION MASTER. When asked, he stated he has 8/10 pain in back of neck, but does not want pain medication at this time. No c/o nausea, SOB or chest pain. STATION MASTER oriented patient to room, call light, etc. VSS, BP 154/83. He is A&O, however, kept asking this nurse to massage his penis. Appears there may be some itchiness that he is requesting a salve for. Pt settled into bed, admit completed.
--- NOTE | 2017-03-10 06:19 | PCM.HPMED ---
Subjective Date of Service Mar 10, 2017 Primary Provider: Admitting Physician: Primary Care Physician: Luis Medrano MD Attending Physician: Admit Status: From the Emergency Department, 23-Hour Observation, Remote Telemetry Chief Complaint: " I cant get up" History of Present Illness: Clem Carter is a 76 yo male with Type 2 Diabetes, Parkinson's disease, hyperlipidemia and Hypertension presenting to [facility] emergency department via EMS due to increased difficultly ambulating. They report that the pt was walking w/ his cane normally earlier today at around 1800 he walked over to his recliner where he sleeps most of the time. He slept for several hours and when he woke up he had a hard time trying to get up and ambulating They also report the pt is experiencing shoulder soreness, and leg cramping but not experiencing any pain or slurred speech. Family did not report any confusion. Patient reports prior Strokes and is a diabetic and has hypertension. Patient reports compliance with prescribed medications although he cannot recall the list Patient reports he ambulates with a walker at baseline Case discussed with Dr Treviño, CT head negative. Suspicion for Stroke given risk factors and will be admitted Review of Systems: Pertinent positives as noted in HPI. All other systems were reviewed and are negative Allergies Coded Allergies: No Known Allergies (Verified Allergy, Mild, 03/25/16) Home Medications From [facility], these are not confirmed Clem Carter. [id number] 1940 04/26/2016 10:30 AM 08/28 atorvastatin 20 mg tablet take 1 tablet by oral route every day carbidopa 25 mg-levodopa 100 mg tablet unsure of dosage finasteride 5 mg tablet take 1 tablet by oral route every day glipizide 10 mg tablet take 1 tablet by oral route every day before a meal lisinopril 10 mg tablet take 1 tablet by oral route every day metformin 1,000 mg tablet take 1 tablet by oral route 2 times every day with morning and evening meals omeprazole 20 mg capsule,delayed release take 1 capsule by oral route every day 30 minutes to 1 hour before a meal tamsulosin 0.4 mg capsule take 1 capsule by oral route every day 1/2 hour following the same meal each day PMH Parkinson's disease. Diabetes mellitus. Bladder retention, at times requiring [place] Prostate Cancer Hypertension Strokes or TIA? . Surgical History Tonsillectomy Family History Father with lung cancer, tobacco history, history of EtOH Mother history of stroke Brother prostate cancer All family members with history of mild hypertension Social History Hx Alcohol Use: No Hx Substance Use: No Hx Tobacco Use: Yes Smoking Status: Former Smoker Living Arrangement: with Family Exam Vital Signs Vital Sign - Last Date Time Temp Pulse Resp B/P Pulse Ox O2 Delivery O2 Flow Rate FiO2 03/10/17 02:10 36.4 67 15 158/66 97 Room Air Exam General: Alert, Oriented X3, Cooperative, No acute Distress Eyes: PERRLA, Scleral Anicteric Mouth: Mouth Normal, Mucous Membranes Moist/[place] Neck: Supple, no Thyromegaly, trachea central. Chest & Lungs: Clear to auscultation & percussion, No adventitious breath sounds, no crackles, no wheeze Cardiovascular: Normal S1, Normal S2, No Murmurs/Rubs/Gallops, Regular Rate/ Rhythm, (No JVD, no peripheral edema) Pulses: Radial (present and equal), Dorsalis Pedi (present and equal) Abdomen: Soft, Non-tender, Non-distended, Normoactive bowel tones. Musculoskeletal: Unremarkable. Normal range of motion, no swollen or erythematous joints Extremities: No edema, no cyanosis, no clubbing. Skin: No rashes. Warm and dry, no erythematous areas Lymphatic: Lymph nodes Cervical and Axillary not palpable. Neurological: Mental Status: Alert, Oriented without any slurred speech Cranial nerves: PERRL. Extraocular movements are intact with no nystagmus. Visual galvez are full to direct confrontation. The face is symmetric, tongue midline Motor: Normal tone. Able to hold both arms and legs up off the bed (slight weakness noted in the right leg) Sensation: Intact to light touch throughout Coordination: Cerebellar testing intact Reflexes: 2 throughout, toes withdraw Gait: not tested Lab and Diagnostics Labs Laboratory Tests Test 03/10/17 02:44 03/10/17 03:30 White Blood Count 9.3th/mm3 (3.8-10.1) Red Blood Count 5.06mil/mm3 (4.40-5.80) Hemoglobin 14.8g/dL (13.8-17.2) Hematocrit 44.2% (41.0-50.0) Mean Corpuscular Volume 87.4fL (81-100) Mean Corpuscular Hemoglobin 29.2pg (27.0-35.0) Mean Corpuscular Hemoglobin Concent 33.5% (32.0-37.0) Red Cell Distribution Width 13.6% (12.3-15.4) Platelet Count 171bil/L (150-400) Neutrophils (%) (Auto) 82.6% (40-74) Lymphocytes (%) (Auto) 11.2% (14-46) Monocytes (%) (Auto) 5.5% (4-12) Eosinophils (%) (Auto) 0.4% (0-5) Basophils (%) (Auto) 0.2% (0-3) Prothrombin Time 11.2sec (8.1-12.5) Prothromb Time International Ratio 1.05ratio Activated Partial Thromboplast Time 25.9sec (22.8-33.0) Sodium Level 138mEq/L (134-144) Potassium Level 4.6mEq/L (3.5-5.2) Chloride Level 98mEq/L (97-108) Carbon Dioxide Level 25mmol/L (18-29) Blood Urea Nitrogen 26mg/dL (8-27) Creatinine 1.02mg/dL (0.76-1.27) Estimat Glomerular Filtration Rate 76mL/min (>59) Glucose Level 197mg/dL (60-99) Calcium Level 9.6mg/dL (8.5-10.1) Total Bilirubin 0.3mg/dL (0.0-1.2) Aspartate Amino Transf (AST/SGOT) 17U/L (0-50) Alanine Aminotransferase (ALT/SGPT) 14U/L (0-44) Alkaline Phosphatase 103U/L (25-160) Troponin T 0.010ug/L (0.0-0.011) Total Protein 7.0g/dL (6.4-8.4) Albumin 4.0g/dL (3.4-5.0) Hold Chase Top Tube Received (Received) Alcohols < 10mg/dL (0-10) Urine Color Yellow (YELLOW) Urine Appearance Clear (CLEAR,HAZY) Urine pH 5.0 (5.0-8.0) Urine Specific [place] 1.025 (1.003-1.035) Urine Protein Negativemg/dL (NEG,TRACE) Urine Glucose (UA) Negativemg/dL (NEGATIVE) Urine Ketones Negativemg/dL (NEGATIVE) Urine Occult Blood Negative (NEGATIVE) Urine Nitrite Negative (NEGATIVE) Urine Bilirubin Negative (NEGATIVE) Urine Urobilinogen Normalmg/dL (NORMAL) Urine Leukocyte Esterase Negative (NEGATIVE) Urine RBC 0-2/hpf (0-2) Urine WBC 0-5/hpf (0-5) Urine Epithelial Cells Moderate/hpf (NONE-MOD) Urine Crystals None seen (NONE SEEN) Urine Bacteria Few/hpf (NONE-FEW) Urine Hyaline Casts None/lpf (NONE) Urine Granular Casts None seen (NONE SEEN) Urine Waxy Casts None seen (NONE SEEN) Urine Red Blood Cell Casts None seen (NONE SEEN) Urine White Blood Cell Casts None seen (NONE SEEN) Urine Mucus None seen (None Seen) Urine Trichomonas None seen (NONE SEEN) Urine Yeast None (NONE SEEN) Urinalysis Comment None Urine Culture Reflexed Not indicated Result Diagram: 03/10/174 03/10/17 0244 X-Rays, CTs and MRIs CT Head Interpretation Impression: No CT evidence of hemorrhage, mass, or acute infarct. This report was transmitted to the emergency room at 02/28/17 - 2:59:55 AM PDT. Interpretation / Wet Read by: Interpret - Radiologist Assessment & Plan Clem Carter is a 76 yo male with Type 2 Diabetes, Parkinson's disease, hyperlipidemia and Hypertension presenting to [facility] emergency department via EMS due to increased difficultly ambulating. 1 Weakness, Acute with possible Transient ischemic attack. Present on admission Stroke risk factors includes Diabetes, Hypertension, Hyperlipidemia, possible prior strokes and age. Patient not a TPA candidate given unclear time of symptoms onset. CT head showed no intracranial bleeding. Neurological assessment somewhat difficult due to Parkinson related chronic symptoms. - monitor on telemetry to look for Atrial fibrillation - MRA/MRI brain with carotid ultrasound as well as echo to complete work up - continue Aspirin for antiplatelet therapy - Physical, Speech and Occupational therapy evaluation requested 2 Diabetes mellitus Type 2, Chronic - will hold metformin and Glipizide - low correction Lispro insulin algorithm - checking A1c (goal < 7 for Stroke secondary prevention) 3 Hypertension Presumed stable - holding all antihypertensive till Stroke is ruled out - allow permissive hypertension for now 4 Parkinson's Disease Presumed stable with baseline symptoms - continue carbidopa - follow up with Dr Longo (Neurology Office) - Acetaminophen as needed for mild pain/fever/headache - Bowel regimen as needed - Antiemetic as needed Patient is admitted under observation status with expected length of stay less than 2 midnights due to severity of presenting symptoms, risk of adverse event, and complexity of treatment plan. Resuscitation Status: CPR: Attempt Resuscitation Adarsh Rios MD Mar 10, 2017 04:52
--- NOTE | 2017-03-10 07:53 | DRSVH ---
PROCEDURE: X-RAY CHEST ONE VIEW, PORTABLE ([id number]) INDICATIONS: weakness TECHNIQUE: One view of the chest was acquired. COMPARISON: [facility], CR, XR CHEST 1VW (PORTABLE), 12/02/2016, 1:06. FINDINGS: Surgical changes and devices: None. Lungs and pleura: No pleural effusions or pneumothorax. Lungs are clear. Mediastinum: Mediastinal contours appear normal. Heart size is normal. Bones and chest wall: No suspicious bony lesions. Overlying soft tissues appear unremarkable. IMPRESSION: No acute cardiopulmonary disease process. Dictated by: Imelda Seo MD, PhD on 03/10/2017 at 7:50 Approved by: Imelda Seo MD, PhD on 03/10/2017 at 7:51
--- NOTE | 2017-03-10 07:53 | DRSVH ---
PROCEDURE: CT BRAIN WITHOUT CONTRAST ([id number]) INDICATIONS: Stroke TECHNIQUE: Noncontrast 4.5 mm thick angled axial sections acquired from the foramen magnum to the vertex, with c oronal reformats. COMPARISON: [facility] , MR, BRAIN W&W/O CONTRAST, 10/31/2010, 9:19. [facility], MR, BRAIN W/O CONTRAST, 07/10/2004, 12:54. [facility], CT, CT BRAIN WO CON, 08/2015, 13:23. FINDINGS: Image quality: Excellent. CSF spaces: Basal cisterns are patent. No extra-axial fluid collections. The ventricles are symmet gino in size and shape. Brain: No intracranial bleeds or masses. Old lacunar infarcts are noted in the left caudate and thal amus. Suspect old infarct in frontal lobes bilaterally and right parietal lobe, as well as left cereb ellum. There is moderate cerebral volume loss for age, with resultant ventricular and sulcal prominen ce. There are moderate to severe periventricular and deep white matter chronic small vessel ischemic changes. There is intracranial internal carotid artery atherosclerosis. Skull and face: Calvarium and visualized facial bones appear intact, without suspicious lesions. Sinuses: Visualized sinuses and mastoids are clear. IMPRESSION: 1. No acute intracranial abnormalities. 2. Old infarcts involving frontal lobes bilaterally and right parietal lobe, as well as the left cere bellum. There are old lacunar infarcts in left basal ganglia and thalamus. 3. Cerebral volume loss and chronic microvascular ischemic changes. Dictated by: Jovani Vaughan M.D. on 03/10/2017 at 7:45 Approved by: Jovani Vaughan M.D. on 03/10/2017 at 7:51
--- NOTE | 2017-03-10 08:35 | DRSVH ---
PROCEDURE: MRA ANGIOGRAM HEAD WITHOUT CONTRAST ([id number]) INDICATIONS: stroke TECHNIQUE: Noncontrast axial 3-D [id number] MR angiogram, with 3-dimensional maximum intensity projection (M IP) reformats of the internal carotid arteries and posterior circulation then performed. COMPARISON: [facility], MR, MR BRAIN WO CON, 03/10/2017, 8:16. [facility], C T, CT BRAIN WO CON, 03/10/2017, 2:47. [facility] , MR, ANGIO HEAD W/O CONTRAST, 2010, 9:19. FINDINGS: Image quality: Excellent. Anterior circulation: Intracranial internal carotid arteries demonstrate normal size and intralumina l flow signal. The flow within the paired anterior cerebral arteries is normal and symmetric. The f low within the middle cerebral arteries is normal and symmetric. The anterior communicating artery i s seen. No stenoses, occlusions, or aneurysms. Posterior circulation: Visualized portions of the vertebral arteries demonstrate normal caliber, and join to form a normal appearing basilar artery. The flow within the posterior cerebral arteries is normal and symmetric. No stenoses, occlusions, or aneurysms. IMPRESSION: No high-grade stenosis or occlusion in anterior or posterior circulations. Dictated by: Jovani Vaughan M.D. on 03/10/2017 at 8:33 Transcribed by: GLORIA on 03/10/2017 at 8:34 Approved by: Jovani Vaughan M.D. on 03/10/2017 at 9:45
[2017-03-10] MEDS: Insulin LISPRO 300 Unit/3 mL Inj SUBQ SCH ×4 (09:26→22:00)
[2017-03-10] MEDS: Heparin 5,000 Unit/mL Inj SUBQ SCH ×3 (09:33→23:25)
--- NOTE | 2017-03-10 09:40 | DRSVH ---
PROCEDURE: MRI BRAIN WITHOUT CONTRAST ([id number]) INDICATIONS: 76 year-old man with right leg weakness. TECHNIQUE: Non-contrast axial T1 spin echo, axial T2 fast spin echo, sagittal and axial FLAIR, coronal T2 fast s pin echo, axial gradient echo, axial diffusion and ADC through the brain. COMPARISON: [facility], CT, CT BRAIN WO CON, 03/10/2017, 2:47. [facility], C T, CT BRAIN WO CON, 03/25/2016, 13:23. [facility] , MR, BRAIN W&W/O CONTRAST, 11/01/19 11, 9:19. [facility], MR, BRAIN W/O CONTRAST, 07/10/2004, 12:54. FINDINGS: Image quality: Excellent. CSF spaces: Ventricles appear symmetric in size and shape. Basal cisterns are patent. No extra-axi al fluid collections. Brain: There is restricted diffusion involving the left cerebellar peduncle, left cerebellar vermis, the superior left eft cerebellar hemisphere, consistent with acute/subacute infarct. There are old i nfarcts in the frontal lobes bilaterally, right portal, and left inferior sacrum. No intracranial ble eds or mass effects. There is moderate cerebral volume loss for age. There are severe periventricul ar and deep white matter chronic small vessel ischemic changes. Brainstem appears normal. Diffusion -weighted images show no acute ischemic insults. No chronic ischemic insults. Normal intravascular flow voids are present. Skull and face: Calvarial bone marrow is normal in signal. Orbits are normal. Sinuses: Sinuses and mastoids are clear. IMPRESSION: 1. Acute/subacute infarction involving the left cerebral peduncle, left cerebellar murmurs and superi or left cerebellar hemisphere. 2. Old multifocal infarctions involving frontal lobes bilaterally, right parietal lobe, and inferior left cerebellum. 3. Cerebral volume loss and chronic microvascular ischemic changes. Dictated by: Jovani Vaughan M.D. on 03/10/2017 at 9:27 Approved by: Jovani Vaughan M.D. on 03/10/2017 at 9:37
--- NOTE | 2017-03-10 10:51 | NUR ---
Evaluation completed. Please go to "Notes" then click on "Assessments and Notes" (bottom left corner of screen). Then select appropriate discipline tab on top of screen.
--- NOTE | 2017-03-10 13:09 | NUR ---
Evaluation completed. Please go to "Notes" then click on "Assessments and Notes" (bottom left corner of screen). Then select appropriate discipline tab on top of screen.
--- NOTE | 2017-03-10 14:46 | NUR ---
Case Management: IMM given and explained to pt and sister. Jesi MADISON RN
--- NOTE | 2017-03-10 16:15 | DRSVH ---
PROCEDURE: US BILATERAL DUPLEX DOPPLER IMAGING OF THE CAROTIDS ([id number]) INDICATIONS: stroke TECHNIQUE: Color and pulse Doppler interrogation was performed of both carotid systems, with image documentation and velocity measurements. COMPARISON: [facility] , MR, ANGIO HEAD W/O CONTRAST, 10/31/2010, 9:19. MR, ANGIO NE CK W/CONTRAST, 10/31/2010, 9:19. [facility], MR, MR ANGIO HEAD WO CON, 03/10/2017, 8:16. [facility], MR, MR BRAIN WO CON, 03/10/2017, 8:16. FINDINGS: All stenosis calculations are based on NASCET criteria. Right side: Brachial blood pressure: 157/76 mm Hg. Common Carotid Artery(Distal) PSV: 72.30 cm/s Internal Carotid Artery PSV- Proximal: 68.90 cm/s Mid-lon.90 cm/s, 71.50 cm/s Distal: - EDV - Proximal: 10.30 cm/s Mid-lon.80 cm/s, 13.40 cm/s Distal: - External Carotid Artery(Proximal) PSV: 66.30 cm/s ICA/CCA PSV ratio: 0.99 Harding scale imaging description: Mild calcified plaques Percent internal carotid artery stenosis: Less than 50%. Vertebral artery: Not visualized. Left side: Brachial blood pressure: 154/83 mm Hg. Common Carotid Artery(Distal) PSV: 55.50 cm/s Internal Carotid Artery PSV - Proximal: 52.30 cm/s Mid-lon.90 cm/s Distal: 63.40 cm/s EDV - Proximal: 7.90 cm/s Mid-lon.60 cm/s Distal: 13 cm/s External Carotid Artery(Proximal) PSV: 80.50 cm/s ICA/CCA PSV ratio: 1.14 Harding scale imaging description: No plaque visualized Percent internal carotid artery stenosis: No significant stenosis. Vertebral artery: Not visualized. IMPRESSION: 1. Less than 50% right internal carotid artery stenosis. 2. No significant left internal carotid artery stenosis. 3. Nonvisualization of vertebral arteries bilaterally. If clinically indicated, CT or MR neck angiogr am is suggested for further evaluation. Dictated by: Jovani Vaughan M.D. on 03/10/2017 at 16:07 Approved by: Jovani Vaughan M.D. on 03/10/2017 at 16:13
--- NOTE | 2017-03-10 18:05 | PCM.PNMED ---
Subjective Date of Service Mar 10, 2017 Subjective Pt. feeling moderately improved since presentation. Feels coordination and strength have improved some, certainly not his baseline. Exam Vital Signs Vital Sign - Last Date Time Temp Pulse Resp B/P Pulse Ox O2 Delivery O2 Flow Rate FiO2 03/10/17 17:32 36.6 70 22 193/85 95 Room Air Intake and Output 03/09/17 03/09/17 03/10/17 Cumulative From/Thru 15:00 23:00 07:00 03/10/17 02:10 - 03/10/17 06:24 Output Total 225 ml 225 ml Balance -225 ml -225 ml Output Urine Total 225 ml 225 ml IVs and Medications Medications Reviewed: Medications were reviewed in detail Lab and Diagnostics Result Diagram: 03/10/17 0244 03/10/17 0244 X-Rays, CTs and MRIs CT Head Interpretation Impression: No CT evidence of hemorrhage, mass, or acute infarct. This report was transmitted to the emergency room at 02/28/17 - 2:59:55 AM PDT. Interpretation / Wet Read by: Interpret - Radiologist Assessment & Plan Clem Carter is a 76 yo male with Type 2 Diabetes, Parkinson's disease, hyperlipidemia and Hypertension presenting to [facility] emergency department via EMS due to increased difficultly ambulating. MRI obtained this morning did demonstrate evidence of CVA in left cerebellar region, in addition to evidence of previous cerebral infarcts. Will continue to allow permissive HTN given this finding through evening. Discussed case with Neurologist, Dr. Ventura who will see patient as well to make further recommendations. Hold ASA now given treatment failure per pt carroll, will consider further in AM. See previous A&P from earlier today for complete plan of care: 1 Weakness, Acute with possible Transient ischemic attack. Present on admission Stroke risk factors includes Diabetes, Hypertension, Hyperlipidemia, possible prior strokes and age. Patient not a TPA candidate given unclear time of symptoms onset. CT head showed no intracranial bleeding. Neurological assessment somewhat difficult due to Parkinson related chronic symptoms. - monitor on telemetry to look for Atrial fibrillation - MRA/MRI brain with carotid ultrasound as well as echo to complete work up - continue Aspirin for antiplatelet therapy - Physical, Speech and Occupational therapy evaluation requested 2 Diabetes mellitus Type 2, Chronic - will hold metformin and Glipizide - low correction Lispro insulin algorithm - checking A1c (goal < 7 for Stroke secondary prevention) 3 Hypertension Presumed stable - holding all antihypertensive till Stroke is ruled out - allow permissive hypertension for now 4 Parkinson's Disease Presumed stable with baseline symptoms - continue carbidopa - follow up with Dr Longo (Neurology Office) - Acetaminophen as needed for mild pain/fever/headache - Bowel regimen as needed - Antiemetic as needed Patient is admitted under observation status with expected length of stay less than 2 midnights due to severity of presenting symptoms, risk of adverse event, and complexity of treatment plan. Pain Evaluation: Adequate Pain Control Resuscitation Status: CPR: Attempt Resuscitation Time spent 25 minutes Brain Cui DO Mar 10, 2017 18:05
--- NOTE | 2017-03-10 20:22 | NUR ---
Behavior: Pt was transferred to a longer bed per request of pt and sister. With the transfer, pt appeared to get scared, grabbing and verbally upset. Sister had left just before the bed/bed transfer. After transfer, pt was sitting up in bed, wanting to stand. Per sister, pt was unable to stand prior to coming to the hospital, so RN was explaining to the pt he could not stand. Pt did not want to listen to RN, just kept stating "get me up" and pushing RNs hand off his shoulder stating he wanted to be left alone so he could just stand up. Additional staff to room to assist pt back to bed. RN called sister to talk to pt, which seems to have helped pt calm down. Pt was telling sister, "I just want to go home". Pt is quietly resting in bed again at this time.
--- NOTE | 2017-03-10 20:45 | CONS ---
[address] [address] CONSULTATION REPORT PATIENT: SHERRY GREEN : 1940 MR#: [id number] ADMIT: 03/10/2017 JOB ID: [id number] DATE OF SERVICE: 03/10/2017 REQUESTING PHYSICIAN: Dr. Omar Cui for acute stroke in the left cerebellar hemisphere. HISTORY OF PRESENT ILLNESS: The patient is a 76-year-old gentleman with known history of stroke, per the patient at least three in the past, who presents with acute onset weakness. The patient apparently was walking earlier in the day, and after falling asleep in his recliner, was unable to get up from it. He advises me that he has had a sore throat for the last week or two. His only one week ago and he has been grieving and admits to severe depression. He otherwise states that he has not missed any medication and has been compliant with treatment. He was appropriately evaluated by the emergency department doctor. He was not a candidate for tPA based on length of time since the onset of symptoms, evidence of acute stroke seen on head CT and his arrival at the emergency department. He was seen approximately 4 hours after the last known being well. His deficits were deemed to be generalized weakness and possible facial droop. His symptoms and presentation were complicated by the fact that he has a diagnosis of Parkinson disease. He was admitted with a workup for stroke. MRI completed today shows evidence of acute stroke in the left cerebellar hemisphere and vermis, old lacunar infarcts in the frontal lobes, and severe microvascular disease were noted. The 2003 MRI of the brain shows evidence of a left acute frontal lobe stroke. I have personally reviewed the films on the PACS system with Dr. Cui. MR angiography of the brain did not show any evidence of high-grade stenosis or occlusion in the anterior or posterior circulation. The vertebral arteries were not visualized past the intracranial vessels. MR angiography of the neck vessels were visualized via a carotid ultrasound which showed evidence of less than 50% stenosis. However, the vertebral arteries were not visualized. The patient was noted to have hypertension. Initially, blood pressure was 158/66. He has been in regular rhythm. Blood pressure currently is 193/35. Laboratory studies showed evidence of elevated neutrophils. U. tox negative for alcohol. UA negative for infection or other significant abnormalities and glucose elevated at 197. The patient has no complaints and is resting comfortably in his bed during the examination. Examination by his physicians was complicated by the patient's Parkinson disease. Dr. Cui requested a Neurology consultation to assist with evaluation and treatment. PAST MEDICAL HISTORY: Parkinson disease, diabetes, urinary retention. Prostate cancer. Hypertension, multiple strokes, tonsillectomy. FAMILY HISTORY: Lung cancer with his father. Mother with history of stroke. Brother with prostate cancer, and a family history of hypertension. SOCIAL HISTORY: Recent loss of his . No drugs, alcohol. Positive for tobacco. REVIEW OF SYSTEMS: Is as per the history of present illness. Patient states he has no complaints except for sore throat with swallowing difficulty. OUTPATIENT MEDICATIONS: Reported as: 1. 81 mg aspirin daily. 2. Atorvastatin 20 mg. 3. Carbidopa/levodopa two tablets of 25/100, three times daily. 4. Cipro. 5. Donepezil. 6. Finasteride. 7. Metformin. 8. Omeprazole. 9. Tamsulosin. INPATIENT MEDICATIONS: 1. Labetalol p.r.n. blood pressure elevation, last given at 18:23, March 10, 2017. 2. Heparin subcutaneous per protocol. 3. 325 mg aspirin. 4. Lisinopril. PHYSICAL EXAMINATION: The patient is alert and responsive, resting comfortably in his bed. Vital signs: Blood pressure 198/85, pulse 72, temperature 36.6, respiratory rate 22, pulse oximetry 95% on room air. Head: Normocephalic, atraumatic. Carotids: Regular no carotid bruit. Cardiac: Regular rate and rhythm with occasional PVCs. Telemetry notes the same. Extremities: Good pedal pulses, no edema. No skin lesions on visualized skin. Neurologic examination: The patient is alert and oriented with language dysarthric. Recent and remote memory as well as fund of knowledge appear to be intact without formal memory testing. Mood is reactive yet reportedly depressed. Cranial nerves: Pupils are equally reactive to light and accommodation. However, he has diplopia in all gaze versions, which is new. No facial asymmetry. Tongue midline. Palate raises symmetrically. SCM and shoulder shrug, as well as hearing appear to be intact bilaterally. Motor strength intact, 5/5, in all four extremities, possibly slightly seeing drift with the right lower extremity. Tone: Increased with cogwheeling rigidity on the right versus to a lesser extent on the left. Upper extremities with increased tone in the lower extremities, right greater than left. Coordination: Over-pointing and dysmetria noted with left greater than right, upper and lower extremities. Deep tendon reflexes trace throughout. Sensation intact to pinprick, soft touch, with vibratory sensation intact, upper and lower extremities symmetrically. Gait deferred due to acute stroke. Laboratories and imaging studies as above. ASSESSMENT/RECOMMENDATION: The patient is a 76-year-old gentleman with acute stroke in the left cerebellar hemisphere, diplopia and dysmetria noted on the left upper and lower extremities. The vertebral arteries are not visualized. I have requested a CT angio to further visualize vertebral arteries to look for dissection or stenosis that could be associated with his symptoms. The patient is at risk of acute decline due to the large left cerebellar hemispheric stroke that includes the vermis. As the patient develops edema, it is possible to see herniation resulting in acute loss of consciousness. He is also at risk of hemorrhage due to his elevated blood pressure. Although I do agree with permissive hypertension, close management to avoid great fluctuation and dropping blood pressure is recommended. The patient has considerable cardiovascular risks and now also the of his and depression, recent illness, possibly stopping some of his medications with glucose elevated and blood pressure elevated. I agree with continuing the stroke workup but would not recommend changing antiplatelet management at this time, only addressing the patient's cardiovascular risks; tobacco abuse, questionable compliance with medications, hypertension, diabetes and hyperlipidemia. It is unclear if sore throat and vocal complaints are due to infections- he states that it has gone on for two weeks- or part of PD or new related to stroke. It is also important to address the patient's underlying depression and grieving process with medication if appropriate and with counseling. Patients do not recover from stroke as well when they are depressed. The patient is followed by Dr. Elan Carrillo for Parkinson's disease. I recommended contacting Dr. Carrillo to advise him that his patient has been admitted to see if he wishes to comment further on treatment. The patient should be continued on his PD medication regimen noted. Please arrange for follow with him after discharge to manage cardiovascular risks and confirm compliance is advised. I agree with Dr. Cui's continuing to manage the patient via the stroke orders. Will follow with you. Please call if needed. FRANCISCO
[2017-03-11] VITALS (8 sets, daily range): BP systolic 112–171; BP diastolic 63–75; PULSE 60–67; RESP 19–20; O2SAT 92–95
[2017-03-11] MEDS: Insulin LISPRO 300 Unit/3 mL Inj SUBQ SCH ×4 (07:47→21:17)
[2017-03-11] MEDS: Heparin 5,000 Unit/mL Inj SUBQ SCH ×2 (07:59→17:14)
--- NOTE | 2017-03-11 11:16 | NUR ---
NUTRITION ASSESSMENT: ASSESS: 76YO M admit with CVA, recent difficulty swallowing, ST following. PMHX: Multiple CVA's, Parkinsons,DM, HTN,Prostate CA DIET: Stimulation. PO 50-100% LABS: Alb 4.0, Glu 197,A1c 6.9 MEDS: Reviewed GI: No BM WEIGHT: 115.7kg BMI: 33.7 EST.NEEDS: 2300-2500kcal, 95-120g pro (20-22kcal/kg;1.2-1.5g/kg IBW) NUTRITION DIAGNOSIS: (1) Chew/swallowing difficulty related to dysphagia as evidenced by modified diet texture per ST. INTERVENTION: (1) Diet per ST. (2) Anticipate timely diet advancement per ST. MONITOR/EVALUATE: PO intake, texture tolerance, lab values. F/U per moderate risk.
--- NOTE | 2017-03-11 14:15 | DRSVH ---
PROCEDURE: CT ANGIOGRAPHY OF THE NECK WITH AND WITHOUT CONTRAST ([id number]) INDICATIONS: Cerebellar infarct. TECHNIQUE: After the administration of intravenous contrast, 1.5 mm axial sections acquired from the aortic arch to the [place] of [place]. Coronal 3-D maximum intensity projection (MIP) and/or volume rendering ref ormats were then performed. For radiation dose reduction, the following was used: automated exposur e control. COMPARISON: [facility], MR, MR BRAIN WO CON, 03/10/2017, 8:16. [facility] , MR, ANGIO NECK W/CONTRAST, 10/31/2010, 9:19. [facility], US, US CAROTID DPLX DOPPLER BILAT, 03/10/2017, 15:17. FINDINGS: Image quality: Excellent. Carotid system: The great vessels demonstrate a conventional anatomy as they arise from the aortic a rch. The origins of the common carotid arteries appear patent. The common carotid arteries demonstr ate normal calibers and courses. There is mild calcific stenosis of the right internal carotid artery origin and less than 10%. Right internal carotid artery is otherwise patent. No left internal caroti d artery stenosis. Posterior circulation: The origins of the vertebral arteries appear patent. The more superior porti ons of the vertebral arteries demonstrate normal course and caliber. They join to form a normal appe aring basilar artery. Soft tissues: Visualized intracranial structures demonstrate a low density left cerebellar focus suzanna uring 34 mm, corresponding to the known left cerebellar infarct. Visualized neck soft tissues demonst rate no suspicious abnormalities. Thyroid gland is grossly unremarkable. Bones: No suspicious bony lesions. Visualized cervical spine appears normally aligned. IMPRESSION: 1. No significant internal carotid artery stenosis bilaterally. 2. Patent bilateral vertebral arteries. 3. Subacute left cerebellar infarct. The estimate of stenosis included in the report of the imaging study was calculated using the NASCET method Dictated by: Sada Burrell M.D. on 03/11/2017 at 14:07 Approved by: Sada Burrell M.D. on 03/11/2017 at 14:13
--- NOTE | 2017-03-11 16:22 | NUR ---
Urinary Retention, Mentation Pt unable to void in the morning, bladder scan showed 437mL. Pt later able to void small amounts frequently. Pt frequently requesting indwelling catheter. 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 Pt continues to be able to void small amounts per urinal. Prostate meds restarted, explained to family. Pt spent most of day shift sleeping. No attempts to get oob. Sitter d/c'd around 12:00 noon, as pt was behaving well all morning. Pt did attempt to grab RN once this afternoon, per family this is something he does frequently, along with inappropriate comments to female caregivers. Pt currently resting comfortably in bed, voices no complaints.
--- NOTE | 2017-03-11 17:25 | DRSVH ---
[facility] [address] [place] [address] Echocardiogram Report Name: SHERRY GREEN RStudy Date: 03/11/2017 Height: 73 in Hospital Exam Location: [facility] Weight: 269 lb Gender: Male BSA: 2.4 m2 : 1940 Age: 76 yrs BP: 125/75 mmHg Reason For Study: Stroke Ordering Physician: Performed By: Sheryl Samayoa Referring Physician: Dr. Mary Medrano Interpretation Summary Mild asymmetric left ventricular hypertrophy with ejection fraction 60-65%. Grade I diastolic dysfunction. No valvular abnormality. Mild-moderately enlarged ascending aorta (4.1 cm). Procedure: A two-dimensional transthoracic echocardiogram with color flow and Doppler was performed. The apical views were difficult to obtain and are suboptimal in quality. There is no prior echocardiogram noted for this patient. The patient was in normal sinus rhythm during the exam. Left Ventricle: The left ventricle is normal in size. There is mild asymmetric left ventricular hypertrophy. The ejection fraction is estimated to be 60-65%. There are no obvious focal wall motion abnormalities noted but poor endocardial definition reduces the sensitivity for the detection of such. Assessment of diastolic parameters indicates a relaxation abnormality of the left ventricle, consistent with normal filling pressures. Right Ventricle: The right ventricle grossly appears normal in size with probable normal systolic function. Atria: The left atrial size is normal. Right atrium not well visualized. Mitral Valve: The mitral valve is normal in structure and function. There is no mitral regurgitation noted. Aortic Valve: The aortic valve is trileaflet. The aortic valve opens well. There is trace aortic regurgitation. Tricuspid Valve: The tricuspid valve is not well visualized, but is grossly normal. Pulmonary artery pressures cannot be estimated because of the lack of a measurable TR jet velocity. Pulmonic Valve: The pulmonic valve leaflets are thin and pliable; valve motion is normal. There is a trace or physiologic amount of pulmonic regurgitation. Great Vessels: The aortic root is at the upper limits of normal in size. The ascending aorta is mild-moderately enlarged. The IVC is dilated (diameter is greater than 2.1 cm) yet it collapses greater than 50% with a sniff. This suggests a right atrial pressure of 8 mm Hg. Pericardium/ Pleura There is no pericardial effusion. MMode/2D Measurements & Calculations LVIDd LA A2 area LVOT diam: 2.8 cmLV velazquez. diameter/BSA : 5.4 cm Ao root diam (cm/m^2): 2.2 IVSd : 1.cm LA A4 area Aortic Jxn LVPWd : 1.2 cm LA length (vol) asc Aorta Diam LA vol: 69.9 ml LA vol index IVC diam: 2.4 cm Doppler Measurements & Calculations Ao V2 max MV E max santos MV E/A: 0.81 PA V2 max : 126.4 cm/sec : 60.5 cm/sec Med Peak E' Santos : 94.8 cm/sec Ao max PG MV A max santos PA mean PG : 6.4 mmHg : 74.3 cm/sec E/E' med: 12.7 Ao mean PG MV P1/2t: 111.7 msec Lat Peak E' Santos PA Accel Time : 0.09 sec LVOT Max Santos E/E' lat: 13.4 : 104.5 cm/sec E/e' average NANETTE(I,D): 6.1 cm sev ratio MV dec time MV P1/2t max santos Ao V2 mean LV V1 max PG : 0.38 sec : 83.8 cm/sec MVA(P1/2t): 2.0 cm2 Ao V2 VTI: 23.6 cm LV V1 VTI NANETTE(V,D): 5.2 cm2 : 23.1 cm PA V2 mean NANETTE indexed to BSA : 65.1 cm/sec (cm^2/m^2): 2.5 Electronically signed by: Evy Moore on Reading Physician:03/11/2017 05:24 PM
--- NOTE | 2017-03-11 18:09 | PCM.PNMED ---
Subjective Date of Service Mar 11, 2017 Subjective Stable overnight. Pt states he does feel fatigued this morning, but perhaps slightly improved from one day prior. Overnight he was inappropriate to female staff however, reportedly slapping one of the backside, but sister states this would not be unsual for him, he has a htz of inapproatie comments in past as well, and has been verbally abusive to her on occasions as well. Exam Vital Signs Vital Sign - Last Date Time Temp Pulse Resp B/P Pulse Ox O2 Delivery O2 Flow Rate FiO2 03/11/17 17:45 36.4 62 20 117/64 95 Room Air Intake and Output 03/10/17 03/10/17 03/11/17 Cumulative From/Thru 15:00 23:00 07:00 03/10/17 02:10 - 03/11/17 06:44 Intake Total 30 ml 100 ml 0 ml 130 ml Output Total 500 ml 1810 ml 900 ml 3435 ml Balance -470 ml -1710 ml -900 ml -3305 ml Intake Oral 30 ml 100 ml 0 ml 130 ml IV Total 0 ml 0 ml Output Urine Total 500 ml 1810 ml 900 ml 3435 ml # Voids 4 4 # Bowel Movements 0 0 0 General: Alert, Oriented X3, Cooperative, Mild Distress Eyes: PERRLA, EOMI Mouth: Mucous Membr Moist/[place] Chest & Lungs: Clear to auscultation & percussion Cardiovascular: Regular Rate/Rhythm Abdomen: Non-tender, Non-distended Extremities: No cyanosis/clubbing/edma bilat Neurological: Grossly Neurologically Intact, Other (able to touch finger then nose, but with some tremor with intention. ) IVs and Medications Medications Reviewed: Medications were reviewed in detail Lab and Diagnostics Result Diagram: 03/10/174 03/10/17 0244 X-Rays, CTs and MRIs CT Head Interpretation Impression: No CT evidence of hemorrhage, mass, or acute infarct. This report was transmitted to the emergency room at 02/28/17 - 2:59:55 AM PDT. Interpretation / Wet Read by: Interpret - Radiologist Assessment & Plan Clem Carter is a 76 yo male with Type 2 Diabetes, Parkinson's disease, hyperlipidemia and Hypertension presenting to [facility] emergency department via EMS due to increased difficultly ambulating. # Weakness, Acute with possible Transient ischemic attack. Present on admission Stroke risk factors includes Diabetes, Hypertension, Hyperlipidemia, possible prior strokes and age. Patient not a TPA candidate given unclear time of symptoms onset. CT head showed no intracranial bleeding. Neurological assessment somewhat difficult due to Parkinson related chronic symptoms. - Monitor on telemetry to look for Atrial fibrillation, but never demonstrated thus far - Continue Aspirin for antiplatelet therapy, though if patient's carroll of tight compliance is true, may consider alternative agent such as Plavix - Physical, Speech and Occupational therapy working with patient - MRI obtained this morning did demonstrate evidence of CVA in left cerebellar region, in addition to evidence of previous cerebral infarcts. - Discussed case with Neurologist, Dr. Ventura who will see patient as well to make further recommendations. - Permissive HTN allowed first 24 hours, now BP has been downward trending. - Likely transfer to acute rehab facility in next 1-2 day for further treatment. # Diabetes mellitus Type 2, Chronic - Will hold metformin and Glipizide - Low correction Lispro insulin algorithm - Checking A1c (goal < 7 for Stroke secondary prevention) # Hypertension - Presumed stable prior to CVA # Parkinson's Disease - Presumed stable with baseline symptoms - Continue carbidopa - Follow up with Dr Longo (Neurology Office) Patient is admitted under observation status with expected length of stay less than 2 midnights due to severity of presenting symptoms, risk of adverse event, and complexity of treatment plan. Pain Evaluation: Adequate Pain Control VTE Mechanical Devices: Anti-Embolic stockings Resuscitation Status: CPR: Attempt Resuscitation Time spent 30 minutes Brain Cui DO Mar 11, 2017 18:09
--- NOTE | 2017-03-11 19:03 | PROG NOTE ---
[address] [address] PROGRESS NOTE PATIENT: SHERRY GREEN : 1940 MR#: [id number] ADMIT: 03/10/2017 JOB ID: [id number] NEUROLOGY PROGRESS NOTE: DATE: 03/11/2017 REQUESTING PHYSICIAN: Brain Cui MD, for cerebellar stroke. HISTORY OF PRESENT ILLNESS: The patient is a 76-year-old gentleman with acute left cerebellar stroke, seen in consultation at the request of Dr. Cui due to recurrent stroke. The patient presented with acute right-sided weakness outside of the tPA window. His course has been complicated by Parkinson disease which makes clinical evaluation somewhat difficult. He will recall that the patient has numerous stroke risk factors as well as depression and grieving from the recent loss of his . I recommended CT angiography to further evaluate the vertebral arteries given the left cerebellar infarct. There was no evidence of stenosis in any of the vessels; carotid or vertebral arteries. The patient has restarted his Parkinson's medications and parkinsonian symptoms have improved. His weakness in the right lower extremity however has become fixed. Evaluation at the bedside by Physical Therapy only. He has otherwise been stable with blood pressure now returning to normal range without needing labetalol. He advises me that still has double vision; though less than he had previously. He is no longer closing his left eye. He does not report swallowing problems but he is currently on a pureed diet with assistance with meals. He is considered a moderate to severe risk of aspiration and dysphagia. The patient was refusing to attempt to stand with Physical Therapy. Echocardiogram was reviewed. Sinus rhythm was appreciated throughout the examination with normal size atria, trace aortic regurgitation, mild left ventricular hypertrophy with an ejection fraction of 60% to 65%. The patient was apparently confused last night and received Ativan. REVIEW OF SYSTEMS: As above, all other systems were reviewed and reported as negative. MEDICATIONS: Carbidopa-levodopa two pills 25/100, two times daily, aspirin 325, tamsulosin, Lipitor held March 10, 2017, insulin, subcutaneous heparin. PHYSICAL EXAMINATION: Vital signs: Blood pressure 117/64, heart rate 62, respiratory rate 20, temperature afebrile. Pulse oximetry 95% on room air. Head: Normocephalic, atraumatic. No carotid bruits. Cardiac: Regular rate and rhythm. Extremities with minimal edema. NEUROLOGICAL EXAMINATION: The patient is alert and oriented but appears to be somewhat confused. He is inappropriate, asking this provider for a "hug and then a kiss". Language and speech are understandable but slurred. He provides appropriate response to questions asked. Cranial nerves: Pupils are equally reactive to light and accommodation. Saccades are slow. The patient complains of diplopia. No gaze version appreciated on examination. Cranial nerves otherwise show right facial droop. Sensation intact on the face. Tongue midline. Sensation intact to touch, all four extremities. Deep tendon reflexes trace throughout. Coordination: Finger to nose cannot be assessed due to right-sided weakness. Heel-to-toe cannot be assessed due to right lower extremity weakness. Motor strength 4-5 upper motor strength. The patient cannot move the right lower extremity. Gait cannot be assessed due to weakness. ASSESSMENT AND RECOMMENDATION: The patient is a 76-year-old gentleman with history of diabetes, Parkinson disease, hyperlipidemia and hypertension with acute stroke in the left cerebellar hemisphere and vermis resulting in right-sided weakness. He has a history of dementia according to chart notes. Likely his confusion and sundowning that is occurring is likely related to the context of acute stroke. Recommend supportive and conservative care rather than medications. Benzodiazepines have a tendency to make patients more confused. Low-dose quetiapine plus Seroquel 12.5 mg may be useful at bedtime if confusion persists. Given the size of the cerebellar stroke, if there is any decline particularly in bulbar functioning, repeat imaging is recommended. Will sign off for now. Please call if needed. [facility]
[2017-03-12 00:17] VITALS: BP 136/76; PULSE 70; RESP 20; O2SAT 93
[2017-03-12] MEDS: Heparin 5,000 Unit/mL Inj SUBQ SCH ×3 (00:25→17:10)
--- NOTE | 2017-03-12 05:48 | NUR ---
mentation Pt yells out when he needs help with urinal. Continues to say inappropriate comments to female caregivers; "touch it (his penis) to help me go". Pt was able to void small amounts in the urinal with minimal help. Pt slept most of the night.
[2017-03-12 07:38] VITALS: BP 144/69; PULSE 71; RESP 20; O2SAT 96
[2017-03-12] MEDS: Insulin LISPRO 300 Unit/3 mL Inj SUBQ SCH ×4 (08:04→20:40)
[2017-03-12 09:18] VITALS: BP 108/70; PULSE 81; RESP 16; O2SAT 98
[2017-03-12 10:34] VITALS: PULSE 70
--- NOTE | 2017-03-12 13:23 | PCM.PNMED ---
Subjective Date of Service Mar 12, 2017 Subjective No acute changes overnight. Patient is set up in bed with physical therapy not comfortable attempting to assist with ambulation. Patient urinates frequently but has not demonstrated any significant volumes postvoid residual measurements. States balance and coordination feel slightly improved, she may not yet back to baseline prior to CVA. Exam Vital Signs Vital Sign - Last Date Time Temp Pulse Resp B/P Pulse Ox O2 Delivery O2 Flow Rate FiO2 03/12/17 10:34 70 03/12/17 09:18 36.7 16 108/70 98 Room Air Intake and Output 03/11/17 03/11/17 03/12/17 Cumulative From/Thru 15:00 23:00 07:00 03/10/17 02:10 - 03/12/17 06:13 Intake Total 237 ml 0 ml 367 ml Output Total 455 ml 475 ml 4365 ml Balance -218 ml -475 ml -3998 ml Intake Oral 237 ml 0 ml 367 ml IV Total 0 ml Output Urine Total 455 ml 475 ml 4365 ml # Voids 2 6 # Bowel Movements 0 0 Exam General: Alert, Oriented X3, Cooperative, no acute Distress Eyes: PERRLA, EOMI Mouth: Mucous Membr Moist/[place] Chest & Lungs: Clear to auscultation & percussion Cardiovascular: Regular Rate/Rhythm Abdomen: Non-tender, Non-distended Extremities: No cyanosis/clubbing/edema bilat Neurological: Grossly Neurologically Intact, essentially unchanged from prior examination. No resting tremor noted but mild tremor observed with intention IVs and Medications Medications Reviewed: Medications were reviewed in detail Lab and Diagnostics Result Diagram: 03/10/17 0244 03/10/17 0244 X-Rays, CTs and MRIs CT Head Interpretation Impression: No CT evidence of hemorrhage, mass, or acute infarct. This report was transmitted to the emergency room at 02/28/17 - 2:59:55 AM PDT. Interpretation / Wet Read by: Interpret - Radiologist Assessment & Plan Clem Carter is a 76 yo male with Type 2 Diabetes, Parkinson's disease, hyperlipidemia and Hypertension presenting to [facility] emergency department via EMS due to increased difficultly ambulating. # Weakness, Acute with possible Transient ischemic attack. Present on admission Stroke risk factors includes Diabetes, Hypertension, Hyperlipidemia, possible prior strokes and age. Patient not a TPA candidate given unclear time of symptoms onset. CT head showed no intracranial bleeding. Neurological assessment somewhat difficult due to Parkinson related chronic symptoms. - Monitor on telemetry to look for Atrial fibrillation, but never demonstrated thus far - Continue Aspirin for antiplatelet therapy, though if patient's carroll of tight compliance is true, may consider alternative agent such as Plavix - Physical, Speech and Occupational therapy working with patient - MRI obtained this morning did demonstrate evidence of CVA in left cerebellar region, in addition to evidence of previous cerebral infarcts. - Discussed case with Neurologist, Dr. Ventura who will see patient as well to make further recommendations. - Permissive HTN allowed first 24 hours, now BP has been downward trending and remains stable - Likely transfer to acute rehab facility in next 1-2 day for further treatment pending continued evaluation and consider of acute rehab vs SNF. - Placement remains pending. # Diabetes mellitus Type 2, Chronic - Will hold metformin and Glipizide - Low correction Lispro insulin algorithm - Checking A1c (goal < 7 for Stroke secondary prevention) # Hypertension - Presumed stable prior to CVA - Now improving, would treat elevationed BP at this time # Parkinson's Disease - Presumed stable with baseline symptoms - Continue carbidopa - Follow up with Dr Longo (Neurology Office) Patient is been transitioned to an inpatient status given complex case necessity of further treatment for acute cerebellar stroke. Pain Evaluation: Adequate Pain Control VTE Mechanical Devices: Intermittant Pneumatic CD Resuscitation Status: CPR: Attempt Resuscitation Time spent 30 minutes Brain Cui DO Mar 12, 2017 13:23
[2017-03-12 13:40] VITALS: BP 126/64; PULSE 76; RESP 20; O2SAT 95
--- NOTE | 2017-03-12 17:29 | NUR ---
Social Work Note: D&A: Reviewed chart. Pt. is a 76yr old male admitted to [facility] with probable CVA. Pt.'s primary payor is 1)Medicare 2)[facility]. PCP is Dr. Medrano. Pt. seen by therapy and SNF vs. inpt. rehab recommended. Order received from for [employer] to start planning with pt/family. Attempted to meet with pt. but he was groggy and asleep at time of visit. Pt.'s brother/Kiran ph# [phone] at bedside. He reports that pt.'s sister Natalia ph# [phone] is DPOA. Briefly discussed SNF/acute rehab options. Left choice list in room and notified family that [employer] teamcenter consultant would follow up 03-13-17. P: Anticipate SNF vs. acute rehab pending progress. Choice list provided and [employer] will need to f/u to secure plan. ALKA Landin
--- NOTE | 2017-03-12 18:46 | NUR ---
Pain Denied pain in a.m. & noon, PT asked RN to administer Tylenol 650mg d/t soreness w/ movement. Patient rigid when moving extremities or turning although would deny pain. Stated Tylenol was effective.
[2017-03-12 20:13] VITALS: BP 130/70; PULSE 72; RESP 22; O2SAT 93
[2017-03-13] VITALS (9 sets, daily range): BP systolic 114–155; BP diastolic 70–80; PULSE 65–75; RESP 14–22; O2SAT 91–95
[2017-03-13] MEDS: Heparin 5,000 Unit/mL Inj SUBQ SCH ×3 (01:15→16:25)
--- NOTE | 2017-03-13 06:36 | NUR ---
Neuros/Pain Pt very sleepy at beginning of shift but easy to arouse. R side flaccid with R facial droop. Speech mumbled but pt able to make some needs known. Pt reports R arm/neck pain, Tylenol given x1, effective.
[2017-03-13] MEDS: Insulin LISPRO 300 Unit/3 mL Inj SUBQ SCH ×4 (08:00→20:26)
--- NOTE | 2017-03-13 13:32 | NUR ---
AM meds AM meds given late d/t pt being groggy this AM and not wanting to eat. notified.
--- NOTE | 2017-03-13 14:24 | NUR ---
Social Work Note - Continued D/C plan DIRECTOR OF THERAPY SERVICES attempted to follow up with pt's sister, MITRA Fisher [phone] regarding choices for SNF placement. DIRECTOR OF THERAPY SERVICES left message asking for a call back. DIRECTOR OF THERAPY SERVICES will continue to follow. Plan: Likely to SNF for rehab. DONNIE Rasheed
--- NOTE | 2017-03-13 14:45 | PCM.PNMED ---
Subjective Date of Service Mar 13, 2017 Subjective Patient is in stable condition. States he feels fatigued this morning. He is not very cooperative is a physical therapy, but still able to ambulate some with two-person assist. Exam Vital Signs Vital Sign - Last Date Time Temp Pulse Resp B/P Pulse Ox O2 Delivery O2 Flow Rate FiO2 03/13/17 13:17 36.7 66 14 114/70 94 Room Air Intake and Output 03/12/17 03/12/17 03/13/17 Cumulative From/Thru 15:00 23:00 07:00 03/10/17 02:10 - 03/13/17 06:09 Intake Total 1062 ml 100 ml 1529 ml Output Total 100 ml 4465 ml Balance 1062 ml 0 ml -2936 ml Intake Oral 1062 ml 100 ml 1529 ml IV Total 0 ml Output Urine Total 100 ml 4465 ml # Voids 3 2 11 # Bowel Movements 0 Exam General: Alert, Oriented X3, Cooperative, no acute Distress Eyes: PERRLA, EOMI Mouth: Mucous Membr Moist/[place] Chest & Lungs: Clear to auscultation & percussion Cardiovascular: Regular Rate/Rhythm Abdomen: Non-tender, Non-distended Extremities: No cyanosis/clubbing/edema bilat Neurological: Grossly Neurologically Intact, essentially unchanged from prior examination. No resting tremor noted but mild tremor observed with intention IVs and Medications Medications Reviewed: Medications were reviewed in detail Lab and Diagnostics Result Diagram: 03/10/174 03/10/17 0244 X-Rays, CTs and MRIs CT Head Interpretation Impression: No CT evidence of hemorrhage, mass, or acute infarct. This report was transmitted to the emergency room at 02/28/17 - 2:59:55 AM PDT. Interpretation / Wet Read by: Interpret - Radiologist Assessment & Plan Clem Carter is a 76 yo male with Type 2 Diabetes, Parkinson's disease, hyperlipidemia and Hypertension presenting to [facility] emergency department via EMS due to increased difficultly ambulating. # Weakness, Acute with possible Transient ischemic attack. Present on admission Stroke risk factors includes Diabetes, Hypertension, Hyperlipidemia, possible prior strokes and age. Patient not a TPA candidate given unclear time of symptoms onset. CT head showed no intracranial bleeding. Neurological assessment somewhat difficult due to Parkinson related chronic symptoms. - Monitor on telemetry to look for Atrial fibrillation, but never demonstrated thus far - Patient's persistent endorsement that he was completely compliant with aspirin therapy I will transition to Plavix at this time for what was considered a treatment failure with aspirin. - Physical, Speech and Occupational therapy working with patient - MRI obtained this morning did demonstrate evidence of CVA in left cerebellar region, in addition to evidence of previous cerebral infarcts. - Discussed case with Neurologist, Dr. Ventura, very much appreciate your assistance in this case. - Permissive HTN allowed first 24 hours, now BP has been downward trending and remains stable - Likely transfer to acute rehab facility in next 1-2 day for further treatment pending continued evaluation and consider of acute rehab vs SNF. - Placement remains pending. # Diabetes mellitus Type 2, Chronic - Will hold metformin and Glipizide - Low correction Lispro insulin algorithm - Checking A1c (goal < 7 for Stroke secondary prevention) # Hypertension - Presumed stable prior to CVA - Now improving, would treat elevationed BP at this time # Parkinson's Disease - Presumed stable with baseline symptoms - Continue carbidopa - Follow up with Dr Longo (Neurology Office) Disposition: Given patient's non-cooperation with physical therapy skilled visual facility appears to be a better fit than what would be a much more intensive treatment program in acute rehabilitation facility. Is currently being attempted Pain Evaluation: Adequate Pain Control VTE Mechanical Devices: Intermittant Pneumatic CD Resuscitation Status: CPR: Attempt Resuscitation Time spent 25 minutes Brain Cui DO Mar 13, 2017 14:45
--- NOTE | 2017-03-13 15:13 | NUR ---
Social Work: Continued d/c planning / Multidisciplinary Rounds Data: Pt is on day 3 of hospitalization. EMR reviewed, pt discussed in rounds. MD states pt likely ready for d/c today or tomorrow. CASEWORK SPECIALIST met with pt at bedside, role explained. Pt again very groggy and not able to fully participate in conversation. CASEWORK SPECIALIST asked pt if he is willing to go to SNF, he nodded yes. CASEWORK SPECIALIST asked if she could call his sister about options, he nodded yes. CASEWORK SPECIALIST called pt's sisters other listed phone number requesting a phone call back. CASEWORK SPECIALIST requested that UR specialist refer pt to both locations in [place] as pt lives in [place]. If pt's sister get's back to CASEWORK SPECIALIST with different preferences before tomorrow, those locations can also be referred. CASEWORK SPECIALIST will continue to follow. MD updated. Assessment: Pt who is independent at baseline. Plan: Pt will d/c likely to SNF when medically stable, tomorrow likely. [facility] as both are [place] locations. CASEWORK SPECIALIST awaiting phone call from pt's sister to complete Initial Assessment and to get SNF preferences. ALKA Santana
[2017-03-13] MEDS: Morphine 20 mg/mL Oral Syringe SL/PO PRN (18:16)
[2017-03-14] MEDS: Heparin 5,000 Unit/mL Inj SUBQ SCH ×2 (00:41→09:56)
[2017-03-14] MEDS: Morphine 20 mg/mL Oral Syringe SL/PO PRN (00:42)
[2017-03-14 02:03] VITALS: BP 131/83; PULSE 75; RESP 17; O2SAT 94
[2017-03-14 05:52] VITALS: PULSE 67
[2017-03-14 06:21] VITALS: BP 128/79; PULSE 68; RESP 16; O2SAT 95
[2017-03-14] MEDS: Insulin LISPRO 300 Unit/3 mL Inj SUBQ SCH ×2 (08:00→12:00)
[2017-03-14 09:13] VITALS: BP 147/84; PULSE 65; RESP 18; O2SAT 95
--- NOTE | 2017-03-14 09:27 | NUR ---
Social Work: Initial Assessment / Readiness for d/c Data: Pt is on day 4 of hospitalization. Pt is a 76 y/o male admitted for weakness, unable to ambulate, R/O CVA. Pt's PCP is Dr Medrano. Pt's insurance is Medicare with [employer]. EMR reviewed. Pt unable to answer questions. TELEVISION CABINET FINISHER met with pt's sister in pt's room. She states pt lives with her in [place] and uses a cane regularly. Pt does not drive, has no hx of HH or SNF, no LTC or VA benefits. Pt is not a caregiver. [facility] can accept pt today. UR specialist notified SNF of likely d/c today. TELEVISION CABINET FINISHER will continue to follow. Assessment: Pt who is independent at baseline. Plan: Pt will d/c to [facility] likely today. TELEVISION CABINET FINISHER will continue to follow. ALKA Santana Addendum: 03/14/17 at 0930 by PEBBLES CORTES Amended: Links added.
--- NOTE | 2017-03-14 09:28 | NUR ---
Called [facility] to confirm patients admittance per HOLTER TECHNICIAN.
--- NOTE | 2017-03-14 11:12 | NUR ---
[facility] is able to accept pt.
--- NOTE | 2017-03-14 11:16 | PCM.DC.MED ---
Discharge Summary Date of Service Mar 14, 2017 Dates of Hospitalization Date of Hospital Admission Mar 10, 2017 at 05:26 Date of Discharge: Mar 14, 2017 Providers: Admitting Physician: Adarsh Rios MD Primary Care Physician: Luis Medrano MD Attending Physician: Brain Cui DO Diagnosis at Time of Discharge Diagnosis at Time of Discharge # Cerebellar ischemic stroke # Weakness, # Diabetes mellitus Type 2, Chronic # Hypertension # Parkinson's Disease Consultations Neurology, Dr. Flores Procedures XRay, CTs & MRIs CT Head Interpretation Impression: No CT evidence of hemorrhage, mass, or acute infarct. This report was transmitted to the emergency room at 02/28/17 - 2:59:55 AM PDT. Interpretation / Wet Read by: Interpret - Radiologist Brief History As per HPI by admitting physician, "Clem Carter is a 76 yo male with Type 2 Diabetes , Parkinson's disease, hyperlipidemia and Hypertension presenting to [facility] emergency department via EMS due to increased difficultly ambulating. They report that the pt was walking w/ his cane normally earlier today at around 1800 he walked over to his recliner where he sleeps most of the time. He slept for several hours and when he woke up he had a hard time trying to get up and ambulating They also report the pt is experiencing shoulder soreness, and leg cramping but not experiencing any pain or slurred speech. Family did not report any confusion. Patient reports prior Strokes and is a diabetic and has hypertension. Patient reports compliance with prescribed medications although he cannot recall the list Patient reports he ambulates with a walker at baseline Case discussed with Dr Treviño, CT head negative. Suspicion for Stroke given risk factors and will be admitted " Hospital Course #Cerebellar stroke, ischemic type # Weakness, Acute with possible Transient ischemic attack. Present on admission Stroke risk factors included Diabetes, Hypertension, Hyperlipidemia, possible prior strokes and age. Patient not a TPA candidate given unclear time of symptoms onset. CT head showed no intracranial bleeding. Neurological assessment somewhat difficult due to Parkinson related chronic symptoms. - Monitor on telemetry to look for Atrial fibrillation, but never demonstrated - MRI obtained this morning did demonstrate evidence of CVA in left cerebellar region, in addition to evidence of previous cerebral infarcts. - Patient's persistent endorsement that he was completely compliant with aspirin therapy, he was transitioned to Plavix therapy on discharge - Physical, Speech and Occupational therapy working with patient prior to transfer to SNF - Permissive HTN allowed first 24 hours, BP then stabilized # Diabetes mellitus Type 2, Chronic - Held metformin and Glipizide initially, restarted on DC. blood sugar remained in adequate control. # Hypertension - Presumed stable prior to CVA - Now improving, would treat elevation BP at this time # Parkinson's Disease - Presumed stable with baseline symptoms - Continued carbidopa - Follow up with Dr Longo (Neurology Office) Exam Vital Signs (Last) Date Time Temp Pulse Resp B/P Pulse Ox O2 Delivery O2 Flow Rate FiO2 03/14/17 09:13 36.9 65 18 147/84 95 Room Air Exam General: Alert, Oriented X3, Cooperative, no acute Distress Eyes: PERRLA, EOMI Mouth: Mucous Membrane Moist/[place] Chest & Lungs: Clear to auscultation & percussion Cardiovascular: Regular Rate/Rhythm Abdomen: Non-tender, Non-distended Extremities: No cyanosis/clubbing/edema bilat Neurological: Grossly Neurologically Intact, essentially unchanged from prior examination. No resting tremor noted but mild tremor observed with intention Test 03/10/17 02:44 03/10/17 03:30 03/10/17 04:45 White Blood Count 9.3th/mm3 (3.8-10.1) Red Blood Count 5.06mil/mm3 (4.40-5.80) Hemoglobin 14.8g/dL (13.8-17.2) Hematocrit 44.2% (41.0-50.0) Mean Corpuscular Volume 87.4fL (81-100) Mean Corpuscular Hemoglobin 29.2pg (27.0-35.0) Mean Corpuscular Hemoglobin Concent 33.5% (32.0-37.0) Red Cell Distribution Width 13.6% (12.3-15.4) Platelet Count 171bil/L (150-400) Neutrophils (%) (Auto) 82.6% (40-74) Lymphocytes (%) (Auto) 11.2% (14-46) Monocytes (%) (Auto) 5.5% (4-12) Eosinophils (%) (Auto) 0.4% (0-5) Basophils (%) (Auto) 0.2% (0-3) Prothrombin Time 11.2sec (8.1-12.5) Prothromb Time International Ratio 1.05ratio Activated Partial Thromboplast Time 25.9sec (22.8-33.0) Sodium Level 138mEq/L (134-144) Potassium Level 4.6mEq/L (3.5-5.2) Chloride Level 98mEq/L (97-108) Carbon Dioxide Level 25mmol/L (18-29) Blood Urea Nitrogen 26mg/dL (8-27) Creatinine 1.02mg/dL (0.76-1.27) Estimat Glomerular Filtration Rate 76mL/min (>59) Glucose Level 197mg/dL (60-99) Calcium Level 9.6mg/dL (8.5-10.1) Total Bilirubin 0.3mg/dL (0.0-1.2) Aspartate Amino Transf (AST/SGOT) 17U/L (0-50) Alanine Aminotransferase (ALT/SGPT) 14U/L (0-44) Alkaline Phosphatase 103U/L (25-160) Troponin T 0.010ug/L (0.0-0.011) Total Protein 7.0g/dL (6.4-8.4) Albumin 4.0g/dL (3.4-5.0) Hold Chase Top Tube Received (Received) Alcohols < 10mg/dL (0-10) Urine Color Yellow (YELLOW) Urine Appearance Clear (CLEAR,HAZY) Urine pH 5.0 (5.0-8.0) Urine Specific [place] 1.025 (1.003-1.035) Urine Protein Negativemg/dL (NEG,TRACE) Urine Glucose (UA) Negativemg/dL (NEGATIVE) Urine Ketones Negativemg/dL (NEGATIVE) Urine Occult Blood Negative (NEGATIVE) Urine Nitrite Negative (NEGATIVE) Urine Bilirubin Negative (NEGATIVE) Urine Urobilinogen Normalmg/dL (NORMAL) Urine Leukocyte Esterase Negative (NEGATIVE) Urine RBC 0-2/hpf (0-2) Urine WBC 0-5/hpf (0-5) Urine Epithelial Cells Moderate/hpf (NONE-MOD) Urine Crystals None seen (NONE SEEN) Urine Bacteria Few/hpf (NONE-FEW) Urine Hyaline Casts None/lpf (NONE) Urine Granular Casts None seen (NONE SEEN) Urine Waxy Casts None seen (NONE SEEN) Urine Red Blood Cell Casts None seen (NONE SEEN) Urine White Blood Cell Casts None seen (NONE SEEN) Urine Mucus None seen (None Seen) Urine Trichomonas None seen (NONE SEEN) Urine Yeast None (NONE SEEN) Urinalysis Comment None Urine Culture Reflexed Not indicated Hemoglobin A1c 6.9% (4.8-5.6) Triglycerides Level 98mg/dL (0-149) Cholesterol Level 161mg/dL (100-199) LDL Cholesterol, Calculated 90.400mg/dL (0-99) VLDL Cholesterol 19.600mg/dL HDL Cholesterol 51mg/dL (>39) Cholesterol/HDL Ratio 3.16 (0.0-4.4) Discharge Medications Discharge Medications Aspirin (Aspirin) 81 Mg Tablet 81 MG PO DAILY (Reported) Atorvastatin (Lipitor) 20 Mg Tablet 20 MG PO DAILY (Reported) Carbidopa/Levodopa 25-100 mg (Carbidopa/Levodopa 25-100 mg) 1 Each Tablet 2 TAB PO TID (Reported) Ciprofloxacin (Cipro) 500 Mg Tablet 500 MG PO BID Prescribed by: ZENIA GONSALEZ MD Donepezil (Donepezil) 10 Mg Tablet 10 MG PO HS (Reported) Finasteride (Finasteride) 5 Mg Tablet 5 MG PO DAILY (Reported) Metformin (Metformin) 500 Mg Tablet 500 MG PO BID (Reported) Omeprazole (Omeprazole) 20 Mg Capsule.dr 20 MG PO DAILY (Reported) Tamsulosin (Flomax) 0.4 Mg Capsule 0.4 MG PO DAILY (Reported) Followup Plan Disposition: SNF Follow-up plan As indicated following discharge from SNF Discharge Diet: No restrictions, Heart Healthy Discharge Activity: Other (SNF rehab) Follow-up with PCP in: 2 weeks Time spent 45 minutes copies to: Luis Medrano MD, Benjamin P DO Mar 14, 2017 11:16
--- NOTE | 2017-03-14 11:16 | NUR ---
per MACHINE TOOL DRESSER request, arranged BLS transport at 200pm to [facility]. Advised MACHINE TOOL DRESSER>
[2017-03-14] MEDS ORDERED: CLOP75TA28 PO (11:21)
--- NOTE | 2017-03-14 11:22 | PCM.DIMED ---
Discharge Instructions Date of Service Mar 14, 2017 Dates of Hospitalization Mar 10, 2017 at 05:26 Discharge Diagnosis Discharge Diagnosis # Cerebellar ischemic stroke # Weakness, # Diabetes mellitus Type 2, Chronic # Hypertension # Parkinson's Disease Diet Discharge Diet: No restrictions, Heart Healthy Activity Discharge Activity: Limited until seen by PCP, Other (SNF rehab) Call your provider Call your provider for: Shortness of breath, Weakness (unilateral) Patient Instructions Follow-up plan As indicated following discharge from SNF Follow-up with PCP in: 2 weeks Brain Cui DO Mar 14, 2017 11:22
--- NOTE | 2017-03-14 11:40 | NUR ---
Social Work: Discharge / Multidisciplinary Rounds Data: Pt is on day 4 of hospitalization. EMR reviewed, pt discussed in rounds. states that pt is ready for d/c today. Pt has been accepted at [facility], pt's first choice. D/C orders placed. BODY CLEANER spoke with Kalpesh at [facility]. BLS order received by BODY CLEANER, BLS transport set up by UR specialist for 2pm. BODY CLEANER notified [facility]. RN and [facility]A notified of transport time. No further d/c planning needs at this time. BODY CLEANER will continue to follow if needs arise. Assessment: Pt who is independent at baseline. Plan: Pt will d/c today to [facility] at 2pm via BLS. No further d/c planning needs at this time. BODY CLEANER will continue to follow if needs arise. ALKA Santana
[2017-03-14 11:47] VITALS: PULSE 66
[2017-03-14 12:50] VITALS: BP 139/75; PULSE 67; RESP 20; O2SAT 93
--- NOTE | 2017-03-14 14:02 | NUR ---
Discharge Pt d/c to [facility] via BLS at 1400. Report called to receiving MIN Vivas. ROLA. All personal belongings left with pt. IV and tele d/c. Pt medicated for pain prior to leaving.
== END 2017-03-14 14:17 | DRG 65 ==
LOC: SED 02:02 → EDBD 02:02 → OBSVTOIN 05:26 → MPC 05:26
PROVIDERS: ADMIT Hospitalist; ATTEND Hospitalist
DX: I63.8 Other cerebral infarction (principal); G81.91 Hemiplegia, unspecified affecting right dominant side; H53.2 Diplopia; E11.9 Type 2 diabetes mellitus without complications; I10 Essential (primary) hypertension; G20 Parkinson's disease; E78.5 Hyperlipidemia, unspecified; Z79.84 Long term (current) use of oral hypoglycemic drugs